=== PATIENT | female | born 1955 | race Caucasian/White ===

== ENCOUNTER → 2023-07-19 10:19 | Outpatient (CLI) | payer MEDICARE, OTHER, SELFPAY ==
[2023-07-19 12:02] LABS: Add Manual Diff / Slide Review NO; Appearance Urine UA CLEAR; Basophils Absolute Auto 0 /uL (0-100); Basophils Percent Auto 0.6 % (0-2); Bilirubin Urine UA NEGATIVE (NEGATIVE); Color Urine UA YELLOW; Eosinophils Absolute Auto 100 /uL (0-450); Eosinophils Percent Auto 1.3 % (2-4); Glucose Urine UA NEGATIVE (Negative); Hematocrit 38.3 % (36-46); Hemoglobin 13.3 g/dL (12.0-16.0); Ketones Urine UA NEGATIVE (NEGATIVE); Leukocyte Esterase Urine UA NEGATIVE (NEGATIVE); Lymphocytes Absolute Auto 2200 /uL (1100-4500); Lymphocytes Percent Auto 44.4 % (25-40); Mean Corpuscular HGB Conc 34.6 % (30-36); Mean Corpuscular Hemoglobin 31.9 PG (26-34); Mean Corpuscular Volume 92.1 fL (80-100); Monocytes Absolute Auto 300 /uL (0-900); Monocytes Percent Auto 6.2 % (3-14); Neutrophils Absolute Auto 2400 /uL (1500-7000); Neutrophils Percent Auto 47.5 % (50-75); Nitrite Urine UA NEGATIVE (Negative); Occult Blood Urine UA NEGATIVE (Negative); Platelet Count 186 X10^3/uL (150-400); Protein Urine UA NEGATIVE (Negative); Red Blood Cell Count 4.16 X10^6/uL (4.0-5.2); Red Cell Distribution Width 13.8 % (11.6-14.8); Specific Gravity Urine UA <=1.005 (1.000-1.035); Urobilinogen Urine UA 0.2 E.U./dL (0.2); White Blood Cell Count 5.1 X10^3/uL (4.5-11.0)
[2023-07-19 12:06] LABS: pH Urine UA 6.5 (4.5-8.0)
[2023-07-19 12:13] LABS: Hemoglobin A1C% w Est Avg Glu 4.8 % (4.0-6.0)
[2023-07-19 12:14] LABS: Bacteria Urine None Seen; Culture Indicated Urine Cult Not Indicated; RBC Urine None Seen (0-5/HPF); Squamous Epithelial Cell Urine None Seen (0-5/HPF); Urine Comments Microscopic Normal; WBC Urine None Seen (0-5/HPF)
[2023-07-19 12:17] LABS: Blood Urea Nitrogen 15 mg/dL (7-17); Calcium 9.2 mg/dL (8.4-10.2); Carbon Dioxide 28 mmol/L (22-32); Chloride 100 mmol/L (98-107); Estimated Glomerular Filt Rate > 60 mL/min (>60); Glucose 88 mg/dL (80-110); HEMOLYSIS < 15 (0-50); Potassium 3.9 mmol/L (3.4-5.1); Sodium 135 mmol/L (137-145)
== END ==
PROVIDERS: PCP Family Medicine; Referring Provider Orthopaedic Surgery; Visit Provider Orthopaedic Surgery
DX: Z01.818 Encounter for other preprocedural examination (principal); R73.9 Hyperglycemia, unspecified; Z01.812 Encounter for preprocedural laboratory examination; N39.0 Urinary tract infection, site not specified
CPT/HCPCS: 36415; 80048; 81001; 83036; 85025; 93005; 93010

== ENCOUNTER 2023-09-19 08:16 | Day surgery (SDC) | payer MEDICARE, OTHER, SELFPAY ==
[2023-09-11 08:21] VITALS: BMI 29.7
[2023-09-19] VITALS (13 sets, daily range): BP systolic 89–141; BP diastolic 45–71; PULSE 55–73; RESP 10–26; TEMP 36–36.6; O2SAT 93–100; BMI 29.5
--- NOTE | 2023-09-19 06:00 | DI.RAD.S_ITS ---
PROCEDURE: XR HIP W PEL IF DONE LT 2V INDICATIONS: left SABRINA TECHNIQUE: 2 view(s) of the hip acquired. COMPARISON: None. FINDINGS: Bones: Patient is status post left hip arthroplasty, with hardware components in expected positions. The hip joint appears congruent. The visualized bony structures appear intact. Soft tissues: Overlying postoperative changes are noted. No suspicious soft tissue densities. IMPRESSION: Expected intraoperative postsurgical change for left hip arthroplasty. Dictated by: Josefa Vazuqez MD, PhD on 09/19/2023 at 14:05 Approved by: Josefa Vazquez MD, PhD on 09/19/2023 at 14:05
[2023-09-19] MEDS: ACETAMINOPHEN 325 MG TABLET 975 MG PO (09:14)
[2023-09-19] MEDS: LACTATED RINGERS 1,000 ML 42 ML IV ×2 (09:15→12:21)
[2023-09-19] MEDS: VANCOMYCIN 1,000 MG/200 ML PIGGYBACK 200 MG IV (09:24)
--- NOTE | 2023-09-19 10:07 | PM.PREOP ---
Pre-operative Note Interval Note History & Physical reviewed/Exam performed by Physician: Yes Changes to H&P: No
--- NOTE | 2023-09-19 10:08 | PM.OP.1 ---
Operative Date/Time/Diagnoses Date of procedure: 09/19/23 Time of procedure: 10:30 Pre-op diagnosis: Severe left hip OA Post-op diagnosis: same Procedure & Clinicians Procedure: Left total hip arthroplasty anterior approach Same procedure as scheduled: Yes Indications: The patient has had progressively worsening left hip pain with radiographic changes consistent with arthritis. Non-operative management has failed and the patient has requested total hip replacement. The risks, benefits and alternatives to surgery were discussed with the patient prior to proceeding. Risks discussed included, but were not limited to, failure to relieve pain, leg length discrepancy, dislocation, stiffness, infection, nerve damage, deep venous thrombosis, pulmonary embolism, stroke, coma, heart attack, permanent paralysis and , as well as the potential need for eventual revision of the prosthetic. Surgeon: Dawna Thompson [employer] Consultant: Sonido Sprague Anesthesia Type: General and Spinal Operative Notes Findings: Severe left hip OA, adequate bone, adequate stability Closure Type: primary Specimen(s): none sent Prosthetic devices, grafts, tissues, transplants, or devices: [employer] R3 50 cup, neutral poly liner,one 6.5 mm screw, 32+ 0 Oxinium head, size 0 standard polar stem with collar Estimated Blood Loss (mL): 250 Blood products transfused: none Procedure in detail: The patient was brought to the operating room. Patient was carefully positioned in the supine position. Time-out was performed and antibiotics were given. Anesthesia was induced. She was positioned in the on the table in order to allow hyperextension of the hip. The left lower extremity was prepped and draped in a standard sterile fashion. An anterior left hip incision was made 1 fingerbreadth lateral to the anterior superior iliac spine and extended distally towards the greater trochanter. Dissection was carried out through skin and subcutaneous tissues. Superficial hemostasis was achieved. The fascia over the tensor fascia jorge was defined and incised with a knife. Two Allis clamps were used to grasp the fascia. Tensor fascia jorge was retracted laterally. A gelpi retractor was placed. Dissection was carried out down along the neck. The circumflex vessels were carefully identified and cauterized with the Aqua Mantis. A PA was used throughout the procedure and was essential for intraoperative retraction and safe implantation of the components. There was good visualization of the femoral neck. A Cobra was placed superior to the neck and the gluteus fibers were carefully stripped from that superior aspect of the capsule. A 2nd retractor was placed along the inferior aspect of the neck. The rectus insertion along the capsule was partially released. A 3rd retractor that was then gently placed over the rim of the acetabulum under the rectus. Capsule was carefully incised and released from the intertrochanteric line circumferentially superior to the mid sagittal line and inferiorly to the mid sagittal line until the lesser trochanter was palpable. A tag stitch was placed both in the superior and inferior limb of the capsular insertion. Along the acetabulum capsule was also released up to the mid sagittal 12:00 position. A portion of the labrum was resected. A saw was used to perform an osteotomy at the level of the intertrochanteric line and the junction of the superior femoral neck leaving approximately 1 finger breath of residual inferior neck above the lesser trochanter. A 2nd cut was made along the femoral neck at the base of the head and a napkin ring of neck was removed. Corkscrew was placed in the femoral head and the head was removed without difficulty. Retractors were then repositioned around the acetabulum. Residual labrum was resected and additional osteophytes were removed. A reamer that was 4 mm below the templated size was placed by hand in the acetabulum and it was reamed to centralize the acetabulum. It was then reamed up to 2 under the templated size and fluoroscopy was brought in to confirm the position of the reaming and depth of reaming. I reamed 1 under the anticipated size and touched the rim with line to line reaming. A trial cup was placed and noted that it was appropriately sized and fluoroscopy confirmed position and depth. The component was open and inserted without difficulty fluoroscopic imaging was used to confirm that the cup had been adequately seated and was well positioned. Neutral poly liner was placed. The cup was tested and noted to be stable. Attention was then directed to the femur. The femur was gently hyperextended additional capsular release was performed as needed in order to allow adequate visualization of the proximal femur with elevation of the femur. Patient was placed in a hyperextended slightly adducted position with maximum external rotation. Box osteotome was used to check for any residual neck as well as sclerotic bone along the trochanter. [place] pepper was placed in the femur. Additional broaching was performed. Canal finder was used to determine the alignment of the canal and position. Size 1 broach was placed. The canal was then appropriately broached up to the templated size as long as there was adequate stability of the broach and serial advancement of the broach without excessive impingement. Specific attention was directed at avoiding varus attempting to direct the distal aspect of the broach more anteriorly and avoiding excessive anteversion. Trial reduction showed acceptable range of motion, good stability, no posterior impingement, sikhism of leg length and appropriate lateral shuck. I also hyperflexed the hip and checked that there was no impingement anteriorly and there was good stability with flexion, adduction and internal rotation. Marcaine and Exparel were injected. The stem was placed without difficulty. Repeat trial reduction and x-ray showed acceptable overall position, length, and no evidence of the femoral fracture. Final head was placed. Wound was meticulously irrigated with normal saline. The hip was reduced and additional Exparel and Marcaine were injected. The capsule was closed with interrupted nonabsorbable sutures. The fascia of the tensor was closed with interrupted and running Vicryl. No drain was placed. Any tensor fascia jorge muscle that appeared to be contused or injured which was a minimal amount was carefully resected. Capsule around the tensor was injected with Exparel and Marcaine. The skin was closed with barbed stitches for the subcutaneous tissue and skin. We also used surgical glue. The wound was dressed sterilely. Brief Betadine soak was also used and was meticulously irrigated with normal saline. Patient was transferred to recovery room in satisfactory condition. Complications: none Post-operative Condition: stable Disposition: Acute Care Plan for aftercare: The patient will be maintained on a standard total hip replacement protocol with weight bearing as tolerated and anterior hip precautions. The patient will receive Aspirin and sequential compression devices for DVT prophylaxis. The patient will be discharged home when safe for the home environment.
[2023-09-19] MEDS: TRANEXAMIC ACID 1,000 MG in SODIUM CHLORIDE 0.9% 100 ML 200 MG IV (10:45)
[2023-09-19] MEDS: CEFAZOLIN 2 GM/100 ML PREMIX 100 ML IV ×2 (10:45→18:17)
--- NOTE | 2023-09-19 11:06 | SUR.OPER ---
Patient supine on padded [place] table, one arm on padded arm board at <90, other arm padded and secured with tape across patient's chest, both legs secured in padded traction boots and positioned per surgeon, padded post at patient's groin, pressure points checked and padded.
[2023-09-19] MEDS: BUPIVACAINE 0.25% (PF) 60 ML, EPINEPHrine 0.3 MG INJ (11:19)
[2023-09-19] MEDS: SODIUM CHLORIDE IRRIG SOLUTION 250 ML, POVIDONE-IODINE SPONGE STICKS 1 APPLIC IRR (11:20)
[2023-09-19] MEDS: BUPIVACAINE LIPOSOME 266 MG/20 ML VIAL INJ (11:20)
--- NOTE | 2023-09-19 14:44 | DI.RAD.S_ITS ---
PROCEDURE: XR HIP W PEL IF DONE LT 2V INDICATIONS: SABRINA TECHNIQUE: AP pelvis and lateral view of the left hip acquired. COMPARISON: [facility], [facility], XR HIP W PEL IF DONE LT 2V, 09/19/2023, 12:40. FINDINGS: Bones: Patient is status post left hip arthroplasty, with hardware components in expected positions. The hip joint appears congruent. The visualized bony structures appear intact. Soft tissues: Overlying postoperative changes are noted. No suspicious soft tissue densities. IMPRESSION: Expected postsurgical change for left hip arthroplasty. Dictated by: Josefa Vazquez MD, PhD on 09/19/2023 at 14:06 Approved by: Josefa Vazquez MD, PhD on 09/19/2023 at 14:06
[2023-09-19] MEDS: OXYCODONE IR 5 MG TABLET PO ×2 (14:50→20:20)
[2023-09-19] MEDS: ACETAMINOPHEN 325 MG TABLET 650 MG PO ×2 (14:50→20:24)
[2023-09-19] MEDS: IBUPROFEN 400 MG TABLET PO ×2 (14:51→18:17)
[2023-09-19] MEDS: TRAMADOL 50 MG TABLET PO (15:23)
[2023-09-19] MEDS: VENLAFAXINE 37.5 MG TABLET 75 MG PO ×2 (15:24→20:21)
[2023-09-19] MEDS: LACTATED RINGERS 1,000 ML 100 ML IV (15:24)
[2023-09-19] MEDS: ASPIRIN EC 81 MG TABLET PO (20:20)
[2023-09-19] MEDS: AMITRIPTYLINE 25 MG TABLET 50 MG PO (20:20)
[2023-09-19] MEDS: MELATONIN 3 MG TABLET PO (20:20)
[2023-09-19] MEDS: DOCUSATE 100 MG CAPSULE PO (20:20)
[2023-09-19] MEDS: carBAMazepine XR 100 MG TAB 300 MG PO (20:21)
[2023-09-20 01:06] VITALS: BP 138/56; PULSE 69; RESP 18; TEMP 36.1; O2SAT 99
[2023-09-20] MEDS: CEFAZOLIN 2 GM/100 ML PREMIX 100 ML IV (02:07)
[2023-09-20] MEDS: LACTATED RINGERS 1,000 ML 100 ML IV (02:07)
[2023-09-20] MEDS: IBUPROFEN 400 MG TABLET PO ×3 (02:07→08:56)
[2023-09-20] MEDS: ACETAMINOPHEN 325 MG TABLET 650 MG PO ×2 (02:07→09:04)
[2023-09-20] MEDS: TRAMADOL 50 MG TABLET PO (05:18)
[2023-09-20] MEDS: LEVOTHYROXINE 50 MCG TABLET PO (05:18)
--- NOTE | 2023-09-20 05:20 | PC.NURSE ---
Patient requesting protonix to be given with 0900 morning meds, as per her routine at home.
[2023-09-20 06:32] LABS: Hematocrit 29.9 % (36-46); Hemoglobin 10.4 g/dL (12.0-16.0)
[2023-09-20 06:50] VITALS: BP 120/48; PULSE 58; RESP 17; TEMP 36.1; O2SAT 99
--- NOTE | 2023-09-20 07:50 | PM.DS.1 ---
History of Present Illness History of Present Illness Date Patient Seen: 09/20/23 Time Patient Seen: 07:50 Chief complaint: Left SABRINA *OPB* 09/19 Narrative: Operative Date/Time/Diagnoses Date of procedure: 09/19/23 Time of procedure: 10:30 Pre-op diagnosis: Severe left hip OA Post-op diagnosis: same Procedure & Clinicians Procedure: Left total hip arthroplasty anterior approach Same procedure as scheduled: Yes Indications: The patient has had progressively worsening left hip pain with radiographic changes consistent with arthritis. Non-operative management has failed and the patient has requested total hip replacement. The risks, benefits and alternatives to surgery were discussed with the patient prior to proceeding. Risks discussed included, but were not limited to, failure to relieve pain, leg length discrepancy, dislocation, stiffness, infection, nerve damage, deep venous thrombosis, pulmonary embolism, stroke, coma, heart attack, permanent paralysis and , as well as the potential need for eventual revision of the prosthetic. Surgeon: Dawna Thompson [employer] Hand: Sonido Sprague Anesthesia Type: General and Spinal Operative Notes Findings: Severe left hip OA, adequate bone, adequate stability Closure Type: primary Specimen(s): none sent Prosthetic devices, grafts, tissues, transplants, or devices: [employer] R3 50 cup, neutral poly liner,one 6.5 mm screw, 32+ 0 Oxinium head, size 0 standard polar stem with collar Estimated Blood Loss (mL): 250 Blood products transfused: none Discharge Providers Provider Discharge Date: 09/20/23 Primary care physician: Silvia Novoa DO Consults: 08/31/23 14:43 Consult to Anesthesiology Routine Comment: Consulting Provider: Anesthesiologist Reason for consultation: Regional block for post operative pain control 09/19/23 06:00 Consult to Anesthesiology Routine Comment: Consulting Provider: Anesthesiologist Reason for consultation: Regional block for post operative pain control 09/19/23 13:34 Consult to Discharge Planning Routine Comment: Consult to Occupational Therapy Evaluate & Treat Comment: Physician Instructions: Evaluate and treat Consult to Physical Therapy Evaluate & Treat Comment: Physician Instructions: post op SABRINA protocol Discharge provider: Naomi Whitlock PA-C Summary Hospital Course Discharge Diagnosis: Left hip osteoarthritis, s/p left total hip arthroplasty Hospital Course: Ms Selena Porter's hospital course was unremarkable. On the morning of POD# 1 she was feeling well and wanted to go home. She was eating and voiding without difficulty and her pain was well-controlled with oral medication. She had not yet been evaluated by PT but had been OOB multiple times without issue. Exam Vital Signs (past 8 hours): - 09/20/23 01:06 09/20/23 06:50 Temperature 96.9 F L 97 F L Pulse Rate 69 58 L Respiratory Rate 18 17 Blood Pressure 138/56 L 120/48 L Pulse Oximetry 99 99 Oxygen Flow Rate 0 0 Oxygen Delivery Method Room Air Oxygen Flow Rate 0 Narrative Exam Narrative: 5/5 strength in hip flexors, quadriceps, hamstrings, DF, PF, EHL on left. Sensation to light touch intact throughout LLE. Calf soft, compressible, nontender. Aquacel dressing CDI. Objective Labs 09/20/23 06:20 Labs: Laboratory Results - last 24 hr 09/20/23 06:20 Hgb 10.4 L Hct 29.9 L PFSH Medical History (Updated 09/11/23 @ 09:18 by Paradise Gutierrez RN) Lyme disease Depression Easy bruisability GERD (gastroesophageal reflux disease) Neuropathy RSD (reflex sympathetic dystrophy) Pre-diabetes Hypothyroidism Fibromyalgia Arthritis Anemia TIA (transient ischemic attack) (2019) RBBB (right bundle branch block) Mixed hyperlipidemia HTN (hypertension) Surgical History (Updated 09/11/23 @ 09:18 by Paradise Gutierrez RN) Hx of hand surgery History of surgery (1964) History of (1982) Social History household members: spouse Smoking Status: Never smoker alcohol intake: never Discharge Assessment & Plan Assessment and Plan Assessment: Left hip osteoarthritis, s/p left total hip arthroplasty Plan of Treatment: Discharge home after PT. Pt has discharge meds already at home. ASA BID x 6 weeks for VTE prophylaxis, outpt PT, f/u in office in 2 weeks as scheduled. Discharge Plan Discharge Plan Patient Disposition: Home Provider Discharge Comment: Increase aspirin to TWICE a day! Discharge orders & Medications Discharge Orders: Discharge (Order); Ordered 09/20/23 Ordered By: Naomi Whitlock Prescriptions: Continued venlafaxine 75 mg Tablet 75 mg PO TID metoprolol succinate 50 mg Tablet Extended Release 24 Hr 50 mg PO DAILY carbamazepine 100 mg Tablet Extended Release 12 Hr 300 mg PO BID melatonin 3 mg Tablet 3 mg PO BEDTIME aspirin [Aspir-81] 81 mg Tablet,Delayed Release (Dr/Ec) 81 mg PO DAILY tramadol 50 mg Tablet 50 mg PO QID amitriptyline 50 mg Tablet 50 mg PO BEDTIME levothyroxine 50 mcg Tablet 50 mcg PO DAILY ferrous sulfate 325 mg (65 mg iron) Tablet 325 mg PO DAILY docusate sodium [Colace] 100 mg Capsule 100 mg PO DAILY omeprazole 20 mg Capsule,Delayed Release(Dr/Ec) 20 mg PO DAILY lisinopril 5 mg Tablet 5 mg PO DAILY hydrochlorothiazide 25 mg Tablet 25 mg PO DAILY rosuvastatin 10 mg Tablet 10 mg PO DAILY Follow up/Referrals: Silvia Novoa DO [Primary Care Provider] - Dawna Thompson MD [Physician] - As previously scheduled (Follow up with Chetan Neville PA-C, on 10/03/2023 @ 3:00 pm at [facility] [place].) Diet/Activity/Treatments Diet: Diet as Tolerated Activity: Weightbearing as tolerated to left leg. Anterior hip precautions. Cold/Heat Therapy: Ice to hip as needed for pain. Skin/Wound/Dressing Care Report to your healthcare provider any signs of infection, such as:: chills, fever, night sweats, unusual drainage and unusual redness Dressing: May shower. Leave dressing in place until follow up in office. No bathing or otherwise soaking incision. Call the office if dressing becomes saturated. Visit Report/Discharge Packet Instructions: DI for Hip Replacement, DI for Prescription Opioid Use Stand Alone Forms: Patient Portal/API, Surgery Discharge Discharge Data Primary Care Provider: Silvia Novoa Attending Provider: Dawna Thompson
[2023-09-20] MEDS: DOCUSATE 100 MG CAPSULE PO (08:55)
[2023-09-20] MEDS: METOPROLOL ER 50 MG TABLET PO (08:55)
[2023-09-20] MEDS: FERROUS SULFATE 325 MG TABLET PO (08:55)
[2023-09-20] MEDS: carBAMazepine XR 100 MG TAB 300 MG PO (08:55)
[2023-09-20] MEDS: ATORVASTATIN 20 MG TABLET PO (08:56)
[2023-09-20] MEDS: VENLAFAXINE 37.5 MG TABLET 75 MG PO (08:56)
[2023-09-20] MEDS: hydroCHLOROthiazide 25 MG TABLET PO (08:57)
[2023-09-20] MEDS: lisinopriL 5 MG TABLET PO (08:57)
[2023-09-20] MEDS: ASPIRIN EC 81 MG TABLET PO (08:57)
[2023-09-20] MEDS: OXYCODONE IR 5 MG TABLET PO (08:57)
[2023-09-20] MEDS: PANTOPRAZOLE DR 20 MG TABLET PO (09:04)
--- NOTE | 2023-09-20 09:15 | PT.IIE ---
Current Diagnoses Unilateral primary osteoarthritis, left hip (09/19/23) Surgery Performed Operation Date: 09/19/23 10:45 Actual Procedures p Total Hip Arthroplasty/Anterior Approach(Left) - Dawna Thompson MD Surgical History (Last Updated 09/11/23 @ 09:18 by Paradise Gutierrez, RN) History of (1982) History of surgery (1964) Hx of hand surgery Medical History (Last Updated 09/11/23 @ 09:18 by Paradise Gutierrez RN) Anemia Arthritis Depression Easy bruisability Fibromyalgia GERD (gastroesophageal reflux disease) HTN (hypertension) Hypothyroidism Lyme disease Mixed hyperlipidemia Neuropathy Pre-diabetes RBBB (right bundle branch block) RSD (reflex sympathetic dystrophy) TIA (transient ischemic attack) (2019) Physical Therapy Inpatient Evaluation/Re-Eval M1 PT/OT-IP Prior Functional Status Start: 09/20/23 12:03 Freq: NEEDED Status: Active Protocol: Document 09/20/23 09:15 AB (Rec: 09/20/23 12:22 AB [id number]) Medical Review Prior Functional Status Medical History Reviewed Yes Communication able to make needs known Mobility and Gait pt stated that she was modified independent with all mobilities and ambulation without AD but started using a quad cane since June and then switched on to a standard walker ~ 6 weeks ago due to hip pain Activities of Daily Living and IADL's per OT notePt had pain with ADL needs but able to complete . Social History Household Members spouse Living Arrangements House Number of Floors (Floors) Two Floors Number of Stairs To Enter/Railing? pt will stay on first level of the house has a ramp to enter Home Environment Standard Height Toilet,Walk in Shower,Ramp,Bidet Home Equipment Four Wheel Walker,Quad Cane, Raised Toilet Seat w/Armrests, Raised Toilet Seat Without Armrests,Tub Transfer Bench, Hand Held Shower,Grab Bars Near Toilet Additional Social History Comment pt has a standard walker M2 PT-IP Current Condition Start: 09/20/23 12:03 Freq: NEEDED Status: Active Protocol: Document 09/20/23 09:15 AB (Rec: 09/20/23 12:22 AB [email or web address]) Physical Therapy Current Condition Current Condition Evaluation Date 09/20/23 Treatment Diagnosis s/p L SABRINA anterior approach; difficulty in walking Onset Date 09/19/23 M3 PT-IP Subjective Start: 09/20/23 12:03 Freq: NEEDED Status: Active Protocol: Document 09/20/23 09:15 AB (Rec: 09/20/23 12:22 AB [email or web address]) Subjective Physical Therapy Visit Type Type Initial Evaluation Visit Start Time 09:15 Visit Stop Time 10:19 Total Visit Minutes 64 Number of JUVENILE PROBATION OFFICER Visits 0 Physical Therapy Visit Comments Patient Comments agreeable to do PT Therapy Pain Assessment Pain When Pain Assessed At Rest Pain Present Pain Present Pain Reported Location Left Hip Intensity 4 Scale Used Numeric (0 - 10) Pain Management Techniques Apply Cold,Distraction, Modification of Treatment,Re- positioning,Timing of Activity with Medications M4 PT-IP Mobility and Gait Start: 09/20/23 12:03 Freq: NEEDED Status: Active Protocol: Document 09/20/23 09:15 AB (Rec: 09/20/23 12:22 AB [email or web address]) PT-Bed Mobility Assessment Supine to Sit Supine to Sit Minimal Assistance Sit to Supine Sit to Supine Moderate Assistance PT-Transfer Assessment Sit to and From Stand Sit to and from Stand Contact Guard Assistance,1 Person Assistance,Use of Upper Extremities Equipment Transfer Assistive Device Gait Belt,Front Wheeled Walker Orthotic/Prosthetic Devices or Brace: No Transfers Transfer Destination Chair Transfer Technique ambulated Transfer Ability Level of Assist Standby Assistance,Contact Guard Assistance,1 Person Assistance,Use of Upper Extremities Comments Mobility Comments pt supine in bed and spouse in room. educated pt and spouse regarding anterior hip precautions LLE. pt requires cues to recall. BP is stable during PT session. pt completed supine to sit min A and for LLE movement to EOB . able to sit on EOB SBA. completed sit to stand CGA and ambulated to the chair using FWW initially requiring min A but able to ambulate CGA after ~ 10 ft of walking. pt sat on the chair. Caregiver training conducte.d educated spouse on how to use safety belt and how to assist pt. spouse was able to put safety belt on pt and assisted pt with sit to stand CGA. pt ambulated to the EOB ~ 15 ft CGA with spouse assisting. educated on bed mobility. pt completed sit to supine mod A for elevated LLE up to bed and spouse was able to assist. pt completed supine to sit min A to EOB. agreed to walk farther. completed sit to stand CGA and ambulated in the hallway ~ 75 ft using FWW SBA to CGA. pt sat on the chair. positioned on the chair. call light and table placed within reach. pt and spouse without further concerns. Gait Assessment Gait Gait Assistance Required: Standby Assistance,Contact Guard Assist,Minimum Assistance Distance (Feet) 75 Able to Maintain Weight Bearing Status Yes During Gait Assistive Devices Assistive Device Gait Belt,Front Wheeled Walker Orthotic/Prosthetic Devices or Brace: No Gait Deviations General Gait Pattern Antalgic,Decreased Stride Length,Decreased Feet Clearance,Step-to Gait Factors Limiting Gait Function Factors Limiting Gait Function Decreased Activity Tolerance, Decreased Sensation,Decreased Strength,Limited Range of Motion,Pain,Poor Balance,Poor Safety Awareness PT-Balance Assessment Sitting Balance and Reactions Dynamic Sitting Balance Ability Good Standing Balance and Reactions Static Standing Balance Ability Fair Dynamic Standing Balance Ability Fair Device Used FWW M5 PT-IP Objective Assessments Start: 09/20/23 12:03 Freq: NEEDED Status: Active Protocol: Document 09/20/23 09:15 AB (Rec: 09/20/23 12:22 [email or web address]) Orientation Orientation/Cognition Level of Alertness Alert Orientation Name,Place,Situation Language Function Ability No Deficits Noted Safety Awareness Decreased Safety Awareness Memory Description Short Term Impaired Gross Range of Motion Lower Extremity ROM Assessment Within Functional Limits Strength Lower Extremity Strength Assessment Left Impaired Hip 3-/5 Knee 3+/5 Sensation Assessment Sensation Gross Sensation Right LE Impaired,Left LE Impaired Sensation Description Tingling Comments Sensation Comments bilateral lower leg tingling per pt: chronic Muscle Tone Muscle Tone WNL Yes M6 PT-IP Treatment Start: 09/20/23 12:03 Freq: NEEDED Status: Active Protocol: Document 09/20/23 09:15 AB (Rec: 09/20/23 12:22 [email or web address]) Physical Therapy Treatment Exercises Exercises Heel Slides Education Education Provided Precautions,Weight Bearing Status,Post-Op Packet,Safety M7 PT-IP Assessment and Plan Start: 09/20/23 12:03 Freq: NEEDED Status: Active Protocol: Document 09/20/23 09:15 AB (Rec: 09/20/23 12:22 [email or web address]) PT Summary Assessment and Plan Potential Rehabilitation Potential Fair Status of Condition at Evaluation Evolving Summary Impairments Pain,ROM,Strength,Balance, Coordination,Sensation,Tone, Cognition,Bed Mobility, Transfers,Gait,Activity Tolerance Assessment Summary pt is a 67y/o F s/p L SABRINA anterior approach POD 1. pt requiring SBA to CGA with mobility using FWW and spouse was able to assist pt safely. Recommending use of FWW at this time and pt plans to borrow one from [facility]. pt plans to go home and may go home when medically stable. pt has outpt PT set up. Goals Bed Mobility Goal Independent Transfer Goal Independent,Front Wheeled Walker Gait Goal Independent,Front Wheel Walker Gait Distance 250 Other Goals improve transfers and ambulation using LRAD 300 ft mod I Days to Meet Goals 5 Frequency of Treatment Frequency Of Treatment Twice a Day Treatment Plan Physical Therapy Treatment Plan Bed Mobility Training,Transfer Training,Gait Training, Therapeutic Exercise,Balance Retraining,Post Op Education, Discharge Planning,Hot or Cold Pack,Neuromuscular Re-ed, Coordination Retraining,Manual Therapy Precautions Anterior Hip Precautions No Hip Extension,No Hip External Rotation Weight Bearing Status Weight Bearing Status Weight Bear as Tolerated Allowed Weight Bearing Amount (enter % LLE WBAT or #) (%) Recommendations To Nursing Amount of Assist Needed 1 Person Assist Discharge Recommendations PT Discharge Recommendations Home with Assistance, Outpatient PT Equipment Needed for Home Before FWW Discharge Transportation Needs at Discharge Private Vehicle
[2023-09-20 09:37] VITALS: BP 111/43; PULSE 63; RESP 18; TEMP 36.3; O2SAT 98
--- NOTE | 2023-09-20 10:22 | CM.DANOTE ---
Reviewed EMR for pt's medical status and anticipated d/c needs. Met with pt at bedside to introduce self and role. She was found to be alert, conversive, expressing feeling ready to d/c home later this morning. Spouse will transport her home. Payor: Medicare Attending: Dr. Thompson Pt is a 67 year-old F placed in same day care bed following a total left hip replacement surgery. Pt has a hx of progressively worsening hip pain with radiographic changes indicative of arthritis. She shares that she has all of the recommended DME at home, spouse will assist w/her care needs. Plan is for her to f/u in 2-weeks with Ortho. No further DCP needs indicated at this time. Discharge Planning/Care Management CM Discharge Assessment Start: 09/20/23 10:20 Freq: Status: Active Protocol: Document 09/20/23 10:20 DPL (Rec: 09/20/23 10:22 DPL [id number]) Discharge Planning Assessment Assigned Executive Chairman Of The Board KRISTI Brown Advance Directives? Yes Advance Directives on File No History Provided By Patient,Medical Record Has Patient been admitted in last 30 No days? Prior Living Arrangements House Household Members spouse Type of transporation used prior to Drives own vehicle admit Independent with ADL's Yes Is patient alert and oriented? Yes Comment N/A Caregiver for Another No DME Already Rented / Owned Bath Bench,Elevated Toilet Seat,FWW / Walker,Cane Patient/Family Preference OP PT Therapy Comment Pt to f/u with Ortho in 2- weeks. Barriers to Discharge No Discharge Plan Home Community Services Physical Therapy Transportation Arrangement Spouse Referrals Initiated None needed Whiteboard Updated in Patient Room with Yes name and ext. # of Executive Chairman Of The Board Review Status In Process Please Provide Date Initial DC 09/20/23 Assessment Was Performed Pre-Anesthesia Assessment Start: 09/11/23 08:21 Freq: Status: Complete Protocol: Document 09/11/23 08:21 CAB (Rec: 09/11/23 09:31 CAB [id number]) Pre-Anesthesia Assessment Preferred Name Ardith Patient Information Reviewed Via Phone Assessment Assessment Completed With Patient Diagnostic Results BMP/CMP,CBC,EKG Comment Labs/EKG @ 07/19/23 Primary Care Provider Silvia Novoa Seen Specialist in Last 12 Months Yes Specialist Seen Manager Of Financial Reporting,Orthopedist,Other Comment RA Primary Language [place]ian English Teacher Required No Height 160.02 cm Weight 76.204 kg Body Mass Index (BMI) 29.7 Hearing Ability Normal Visual Assist Glasses Dentition Type Teeth, Natural Present,Teeth, Missing Barriers to Learning None Hx Anesthesia Reactions Yes: Spinal-didn't work on the left side of me during the Hx Family Anesthesia Reaction No Hx Malignant Hyperthermia No Hx Blood Transfusions Yes: r/t parotid surgery Anesthesia Review Requested No Er Registrar No alcohol intake former Smoking Status Never smoker Substance Use Type does not use Pain Present Pain Reported Musculoskeletal Symptoms Abnormal Gait,Back Pain, Difficulty Walking,Joint Pain, Radiating Pain into Limb History of Falling (Recent or History of Yes ) Patient is completely paralyzed or No completely immobile Prosthesis or Orthotic Device Front Wheel Walker Mental Status Oriented to own ability Is patient on oxygen? No Does patient have DIGGS/SOB Yes: 'When I'm really exerting myself Hx Sleep Apnea No Currently Taking a Beta Wilmre Yes: Metoprolol Hx Chest Pain No Hx SOB Yes: 'When I'm really exerting myself Hx Syncope or Dizziness No Anti-Coagulant Therapy Yes: ASA 81mg-pt will check w/ PCP if needed to hold Has a Manager Of Financial Reporting Yes: Pre-op visit 04/26/23 Manager Of Financial Reporting name Dr. Burger @ [facility] Cardiac Testing Echo 05/25/23, Carotid US Hx Pacemaker/ICD No Pacemaker Rep Required? No Cardiac Clearance Received Yes Comment Cardiac records scanned Diet Type At Home Vegetarian Dysphagia No Gastrointestinal Symptoms Constipation,Nausea,Reflux Bladder Pattern Incontinent, Stress Urinary Catheter Present No Hx Urinary Self Catheterization No Diabetes No: Pre-diabetes HgbA1C 4.8 Date 07/19/23 Patient No Lactating No Hx Drug Resistant Organism No Presence of External or Internal Medical No Devices Received a COVID vaccine? Yes Received all doses? Yes Marital Status Lives With spouse Current Living Arrangements House Number of Floors (Floors) One Floor Number of Stairs To Enter/Railing? Ramp Support System Spouse Does the Patient Have Assistance After Yes Surgery Patient Discharge Plan Description Return Home Comment Pt advised 1-2 day length of stay per surgeon Feels Safe in Current Environment Yes Been Physically Hurt or Threatened By a No Person in Current Environment Do you have thoughts of harming yourself None or others? Are you currently considering suicide? No Do you have a plan to hurt yourself or No Plan others? Do You Have Any Spiritual Beliefs That No May Affect Your HC Choices? Do You Have Any Cultural Practices That No May Affect Your HC Choices? Comment Restorationism Who Can We Speak to About Patient's Care Family, friends Identifying Code for Release of Patient Declines to issue Information Health Care Proxy/Next of Kin Phan () Health Care Proxy Emergency Contact Name Phan () Emergency Contact Advance Directives? Yes Advance Directives on File No Requested Patient Bring Advanced Yes Directives DOS Power of Guest Associate Yes Power of Guest Associate Name Phan () Power of Guest Associate PAC Instructions Do not shave/clip surgical site,Durable medical equipment ,Medications to take/avoid, Nasal antibiotic,No ETOH/ petroleum product on skin DOS, NPO,Pre-surgical wash,Sensory aids,Sturdy shoes/comfortable clothes,Do not bring valuables and remove jewelry
--- NOTE | 2023-09-20 11:08 | OT.IP.EVAL ---
Current Diagnoses Unilateral primary osteoarthritis, left hip (09/19/23) Surgery Performed Operation Date: 09/19/23 10:45 Actual Procedures p Total Hip Arthroplasty/Anterior Approach(Left) - Dawna Thompson MD Past Medical History (Last Updated 09/11/23 @ 09:18 by Paradise Gutierrez, RN) Anemia Arthritis Depression Easy bruisability Fibromyalgia GERD (gastroesophageal reflux disease) HTN (hypertension) Hypothyroidism Lyme disease Mixed hyperlipidemia Neuropathy Pre-diabetes RBBB (right bundle branch block) RSD (reflex sympathetic dystrophy) TIA (transient ischemic attack) (2019) Surgical History (Last Updated 09/11/23 @ 09:18 by Paradise Gutierrez, RN) History of (1982) History of surgery (1964) Hx of hand surgery Occupational Therapy Inpatient Evaluation/Re-Eval M1 PT/OT-IP Prior Functional Status Start: 09/20/23 11:12 Freq: NEEDED Status: Active Protocol: Document 09/20/23 10:50 [facility] (Rec: 09/20/23 11:25 [facility] [id number]) Medical Review Prior Functional Status Communication Independent Mobility and Gait Pt at times having to use her 4ww due to her pain. Activities of Daily Living and IADL's Pt had pain with ADL and IADL needs but able to complete. Social History Household Members spouse Living Arrangements House Number of Floors (Floors) One Floor Number of Stairs To Enter/Railing? Pt has a ramp to enter her house. Home Environment Standard Height Toilet,Walk in Shower Home Equipment Front Wheel Walker,Four Wheel Walker,Straight Cane,Raised Toilet Seat Without Armrests, Grab Bars Near Toilet Additional Social History Comment Pt has a built in seat. M2 OT-IP Current Condition Start: 09/20/23 11:12 Freq: Status: Active Protocol: Document 09/20/23 10:50 [facility] (Rec: 09/20/23 11:25 [facility] [id number]) Occupational Therapy Current Condition Current Condition Evaluation Date 09/20/23 Treatment Diagnosis S/P L SABRINA anterior approach Diagnosis Onset Date 09/19/23 Post Operative Precautions Anterior Hip Precautions No Hip Extension,No Hip External Rotation M3 OT- IP Subjective and Pain Start: 09/20/23 11:12 Freq: Status: Active Protocol: Document 09/20/23 10:50 [facility] (Rec: 09/20/23 11:25 [facility] [id number]) OT- Subjective Occupational Therapy Visit Type Type Initial Evaluation Visit Start Time 10:50 Visit Stop Time 11:08 Total Visit Minutes 18 Occupational Therapy Visit Comments Patient Comments Pt agreed to go over OT needs, pt's in the room with her. Patient/Caregiver Goals To go home. OT Pain Assessment Pain When Pain Assessed At Rest Pain Present Pain Present Denied Pain M4 OT- IP ADL's Start: 09/20/23 11:12 Freq: Status: Active Protocol: Document 09/20/23 10:50 [facility] (Rec: 09/20/23 11:25 [facility] [id number]) OT XOT-Dhsh-Lszlbtv General Evaluation Self-Feeding Ability Independent OT ADL-Grooming General Evaluation Grooming Ability Independent OT ADL-Oral Care General Eval Oral Care Ability Independent OT ADL-Dressing Comments OT Dressing Comments Educated best to raheem LLE first and take out last. Also to be sure not to externally rotate her LLE. OT ADL-Toileting Comments OT Toileting Comments Pt educated increased ease for hygiene with wipes and use of pads at night if needed. OT ADL-Bathing Comments OT Bathing Comments Pt is able to get her FWW to help get into the shower. At this time it would be best to get a shower chair with arms or use the FWW to help to stand from the built in seat in the shower. M5 OT- IP IADL's Start: 09/20/23 11:12 Freq: Status: Active Protocol: Document 09/20/23 10:50 [facility] (Rec: 09/20/23 11:25 [facility] [id number]) OT-Instrumental Activities of Daily Living Deficits IADL Deficits Identified Deficits Home Safety Awareness Awareness of Need for Assistance at Home Good Awareness Ability to Problem Solve Emergency Able to Problem Solve Situations Meal Preparation Meal Preparation Caregiver Provides Assist Tobacco Educator Tobacco Educator Caregiver Provides Assist M6 OT- IP Functional Cognition Start: 09/20/23 11:12 Freq: Status: Active Protocol: Document 09/20/23 10:50 [facility] (Rec: 09/20/23 11:25 [facility] [id number]) Cognitive Factors Limiting Selfcare Function Cognitive Ability Level of Alertness Alert Patient Orientation Name,Age,Birthday,Month,Date, Year,Day of Week,Place, Situation Attention Span Ability Capable of Focused Attention, Capable of Sustained Attention Ability to Follow Commands Able to Follow Multi-Step Commands Memory Description No Deficits Noted Safety Awareness No Deficits Noted Problem Solving Ability No deficits Noted Executive Function Ability No Deficits Noted Cognitive Comments Cognitive Assessment Comments Pt is intact for all OT needs, good understanding and demonstration of following her hip precautions. OT- Vision and Hearing OT- Hearing Assessment OT- Hearing Assessment WFL OT- Vision Assessment Visual Acuity Glasses All The Time Visual Attentiveness WFL Occular Pursuits WFL M7 OT- IP Mobility and Balance Start: 09/20/23 11:12 Freq: Status: Active Protocol: Document 09/20/23 10:50 [facility] (Rec: 09/20/23 11:25 [facility] [id number]) OT-Transfer Assessment Sit to and From Stand Sit to and from Stand Standby Assistance Comments Mobility Comments Pt needing heavy use of her arms on the recliner to help to stand to the FWW. OT- Balance Assessment Sitting Balance and Reactions Static Sitting Balance Ability Normal Dynamic Sitting Balance Ability Good Standing Balance and Reactions Static Standing Balance Ability Good Dynamic Standing Balance Ability Fair M9 OT- IP Assessment and Plan Start: 09/20/23 11:12 Freq: Status: Active Protocol: Document 09/20/23 10:50 [facility] (Rec: 09/20/23 11:25 [facility] [id number]) OT Summary Assessment and Plan Potential Rehabilitation Potential Excellent Analytic Complexity at Evaluation Low Summary OT Impairments Pain,Strength,Balance, Functional Mobility,Dressing, Bathing,Shower Transfers Progress Towards Goals Progressing Toward Goals Assessment Summary Pt low complexity and main barriers are will need assist for dressing and bathing needs . Pt has a supportive who will assist pt at home. Pt to go home with assist and outpt PT. Goals Dressing Goal Independent Toileting Goal Independent Bathing Goal Independent Toilet Transfer Goal Independent Shower Transfer Goal Independent Days to Meet Goals 7 Frequency of Treatment Frequency Of Treatment Once a Day Treatment Plan OT Treatment Plan ADL Training,Functional Mobility,Patient/Family Education,Discharge Planning Discharge Recommendations OT Discharge Recommendations Home with Assistance, Outpatient PT Home Equipment Needs shower chair with armrest Transportation Needs at Discharge Private Vehicle
--- NOTE | 2023-09-20 12:25 | PC.NURSE ---
Discharge: Pt feels ready to d/c to home. Seen by PA an given d/c instructions, Seen by PT/OT and they have passed her for d/c to home. Tolerates diet w/out problems. Voiding w/out diff. Po pain have been effective. Spouse here when seen by PT. D/c packet given and reviewed. Questions answered. Pt d/c to home via auto. Voiced no concerns at d/c.
== END 2023-09-20 11:50 | disposition home or self-care (01) ==
LOC: OR 08:22 → AC 08:23
PROVIDERS: PCP Family Medicine; Referring Provider Orthopaedic Surgery; Visit Provider Orthopaedic Surgery
PROC: (CPT 27130; principal; 2023-09-19 10:45)
DX: M16.12 Unilateral primary osteoarthritis, left hip (principal); D64.9 Anemia, unspecified; I10 Essential (primary) hypertension; K21.9 Gastro-esophageal reflux disease without esophagitis
CPT/HCPCS: 27130; 36415; 73502; 76000; 85014; 85018; 97162; 97165; 97530; C1776; C9290; J0171; J0690; J1100; J2250; J2405; J2704; J3010

== ENCOUNTER 2023-09-25 11:03 | Emergency (ER) | payer MEDICARE, OTHER, SELFPAY ==
[2023-09-19 13:38] VITALS: BMI 29.5
[2023-09-25] VITALS (7 sets, daily range): BP systolic 135–158; BP diastolic 63–72; PULSE 65–79; RESP 13–18; TEMP 36.9; O2SAT 97–98; BMI 29.7
--- NOTE | 2023-09-25 11:10 | ED.SOB ---
HPI - SOB/Dyspnea <Froylan Amin PA-C - Last Filed: 09/25/23 12:43> General Chief Complaint: Chest Pain Stated Complaint: poss pulminary clot post surgery Time Seen by Provider: 09/25/23 11:10 History of Present Illness HPI Narrative: This is a 67-year-old female presents emergency department due to left-sided chest pain onset yesterday. She states that it feels like a dull ache to the lower left side of her chest. She denies any shortness of breath, nausea, vomiting, dizziness, abdominal pain, or any other concerning signs or symptoms. She is concerned she has a blood clot in her lung since she had surgery 6 days ago for left hip total hip replacement. She was discharged with aspirin 81 mg b.i.d. which she says she is been taking his prescribed. Related Data Home Medications Medication Instructions Recorded Confirmed amitriptyline 50 mg tablet 50 mg PO BEDTIME 09/11/23 09/19/23 aspirin 81 mg tablet,delayed 81 mg PO DAILY 09/11/23 09/19/23 release carbamazepine 100 mg 300 mg PO BID RSD 09/11/23 09/19/23 tablet,extended release,12 hr docusate sodium 100 mg capsule 100 mg PO DAILY 09/11/23 09/19/23 (Colace) ferrous sulfate 325 mg (65 mg 325 mg PO DAILY 09/11/23 09/19/23 iron) tablet hydrochlorothiazide 25 mg tablet 25 mg PO DAILY 09/11/23 09/19/23 levothyroxine 50 mcg tablet 50 mcg PO DAILY 09/11/23 09/19/23 lisinopril 5 mg tablet 5 mg PO DAILY 09/11/23 09/19/23 melatonin 3 mg tablet 3 mg PO BEDTIME 09/11/23 09/19/23 metoprolol succinate 50 mg 50 mg PO DAILY 09/11/23 09/19/23 tablet,extended release 24 hr omeprazole 20 mg capsule,delayed 20 mg PO DAILY 09/11/23 09/19/23 release rosuvastatin 10 mg tablet 10 mg PO DAILY 09/11/23 09/19/23 tramadol 50 mg tablet 50 mg PO QID Fibromyalgia 09/11/23 09/19/23 venlafaxine 75 mg tablet 75 mg PO TID Depression 09/11/23 09/19/23 Allergies Allergy/AdvReac Type Severity Reaction Status Date / Time Penicillins Allergy Mild Rash Verified 09/25/23 11:11 pregabalin [From Lyrica] AdvReac Severe Suicidal Verified 09/25/23 11:11 Ideation Sulfa (Sulfonamide AdvReac Intermediate Nausea Verified 09/25/23 11:11 Antibiotics) Review of Systems <Froylan Amin PA-C - Last Filed: 09/25/23 12:43> Review of Systems Narrative: GENERAL: Denies chills, fatigue, malaise, fever, sweats. HEENT: Denies sinus pain, ear pain, sore throat, difficulty swallowing, dizziness. RESPIRATORY: Denies dyspnea, cough, wheezing, hemoptysis, sputum. CARDIOVASCULAR: Reports left-sided chest pain, denies palpitations, orthopnea, edema, GASTROINTESTINAL: Denies nausea, vomiting, abdominal pain, diarrhea, constipation, melena. : Denies dysuria, frequency, incontinence, hematuria, urinary retention. MUSCULOSKELETAL: denies weakness, joint pain, or bony pain SKIN: Denies rash, skin lesions, or other NEUROLOGIC: Denies weakness, headache, numbness, change in speech, confusion, seizures, incoordination. PSYCHIATRIC: No concerning psychosocial issues. 12 point review of systems is negative except for those stated above Patient History <Froylan Amin PA-C - Last Filed: 09/25/23 12:43> Medical History (Updated 09/25/23 @ 12:43 by Froylan Amin PA-C) Lyme disease Depression Easy bruisability GERD (gastroesophageal reflux disease) Neuropathy RSD (reflex sympathetic dystrophy) Pre-diabetes Hypothyroidism Fibromyalgia Arthritis Anemia TIA (transient ischemic attack) (2019) RBBB (right bundle branch block) Mixed hyperlipidemia HTN (hypertension) Surgical History (Updated 09/11/23 @ 09:18 by Paradise Gutierrez RN) Hx of hand surgery History of surgery (1964) History of (1982) Social History household members: spouse Smoking Status: Never smoker alcohol intake: never Smoking Status: Never smoker Substance Use Type: does not use Exam <Froylan Amin PA-C - Last Filed: 09/25/23 12:43> Narrative Exam Narrative: GENERAL: Well-developed patient, in mild distress. HEAD: Atraumatic. Normocephalic. EYES: Pupils equal round and reactive. Extraocular motions intact. No scleral icterus. No injection or drainage. ENT: Nose without bleeding, purulent drainage. Throat without erythema, tonsillar hypertrophy or exudate. Airway patent. NECK: Trachea midline. Non tender CARDIOVASCULAR: Regular rate and rhythm without murmurs, gallops, or rubs. RESPIRATORY: Clear to auscultation. Breath sounds equal bilaterally. No wheezes, rales, or rhonchi. GASTROINTESTINAL: Abdomen soft, non-tender, nondistended. EXTREMITIES: No edema or joint tenderness. BACK: Nontender without deformity or crepitance. No flank tenderness. NEURO: AOx3. SKIN: No rash or erythema of visible areas Initial Vital Signs Initial Vital Signs: Vital Signs Temperature 98.5 F 09/25/23 11:11 Pulse Rate 79 09/25/23 11:11 Respiratory Rate 18 09/25/23 11:11 Blood Pressure 158/72 H 09/25/23 11:11 Pulse Oximetry 98 09/25/23 11:11 Oxygen Delivery Method Room Air 09/25/23 11:11 <Frank Walker MD - Last Filed: 10/09/23 12:54> Initial Vital Signs Initial Vital Signs: Vital Signs Temperature 98.5 F 09/25/23 11:11 Pulse Rate 79 09/25/23 11:11 Respiratory Rate 18 09/25/23 11:11 Blood Pressure 158/72 H 09/25/23 11:11 Pulse Oximetry 98 09/25/23 11:11 Oxygen Delivery Method Room Air 09/25/23 11:11 Course <Froylan Amin PA-C - Last Filed: 09/25/23 12:43> Orders Ordered: ED Orders 09/25/23 11:17 EKG-12 Lead Stat 09/25/23 11:18 XR chest 2V Stat 09/25/23 11:30 Complete Blood Count AUTO DIFF Stat Comprehensive Metabolic Panel Stat D Dimer Stat Troponin & CK Cardiac Panel Stat 09/25/23 11:53 CT angio chest PE protocol Stat Vital Signs Vital signs: Vital Signs - 8 hr 09/25/23 11:11 09/25/23 11:28 09/25/23 11:30 Temperature 98.5 F Pulse Rate 79 75 Respiratory Rate 18 Blood Pressure 158/72 H 141/67 H Pulse Oximetry 98 98 Oxygen Delivery Method Room Air Room Air 09/25/23 11:30 09/25/23 12:00 09/25/23 12:24 Temperature Pulse Rate 73 68 Respiratory Rate 13 Blood Pressure 135/63 Pulse Oximetry 98 97 Oxygen Delivery Method Room Air 09/25/23 12:24 Temperature Pulse Rate 69 Respiratory Rate 17 Blood Pressure Pulse Oximetry 98 Oxygen Delivery Method <Frank Walker MD - Last Filed: 10/09/23 12:54> Orders Ordered: ED Orders 09/25/23 11:17 EKG-12 Lead Stat 09/25/23 11:18 XR chest 2V Stat 09/25/23 11:30 Complete Blood Count AUTO DIFF Stat Comprehensive Metabolic Panel Stat D Dimer Stat Troponin & CK Cardiac Panel Stat 09/25/23 11:53 CT angio chest PE protocol Stat Vital Signs Vital signs: Vital Signs - 8 hr 09/25/23 11:11 09/25/23 11:28 09/25/23 11:30 Temperature 98.5 F Pulse Rate 79 75 Respiratory Rate 18 Blood Pressure 158/72 H 141/67 H Pulse Oximetry 98 98 Oxygen Delivery Method Room Air Room Air 09/25/23 11:30 09/25/23 12:00 09/25/23 12:24 Temperature Pulse Rate 73 68 Respiratory Rate 13 Blood Pressure 135/63 Pulse Oximetry 98 97 Oxygen Delivery Method Room Air 09/25/23 12:24 Temperature Pulse Rate 69 Respiratory Rate 17 Blood Pressure Pulse Oximetry 98 Oxygen Delivery Method MDM - SOB/Dyspnea <Froylan Amin PA-C - Last Filed: 09/25/23 12:43> Lab Data 09/25/23 11:30 09/25/23 11:30 Labs: Lab Results 09/25/23 Range/Units 11:30 WBC 6.2 (4.5-11.0) X10^3/uL RBC 3.93 L (4.0-5.2) X10^6/uL Hgb 12.2 (12.0-16.0) g/dL Hct 36.0 (36-46) % MCV 91.4 (80-100) fL MCH 31.1 (26-34) PG MCHC 34.1 (30-36) % RDW 13.4 (11.6-14.8) % Plt Count 258 (150-400) X10^3/uL Neut % (Auto) 60.4 (50-75) % Lymph % (Auto) 27.9 (25-40) % [place] % (Auto) 7.8 (3-14) % Eos % (Auto) 2.9 (2-4) % Baso % (Auto) 1.0 (0-2) % Neut # (Auto) 3800 (4777-8250) /uL Lymph # (Auto) 1700 (5381-5308) /uL [place] # (Auto) 500 (0-900) /uL Eos # (Auto) 200 (0-450) /uL Baso # (Auto) 100 (0-100) /uL D-Dimer 2037 H (<500) ng/ml Sodium 134 L (137-145) mmol/L Potassium 3.5 (3.4-5.1) mmol/L Chloride 96 L (98-107) mmol/L Carbon Dioxide 33 H (22-32) mmol/L BUN 15 (7-17) mg/dL Creatinine 0.48 L (0.52-1.04) mg/dL Estimated GFR > 60 (>60) mL/min BUN/Creatinine Ratio 31.3 H (6-22) Glucose 99 (80-110) mg/dL Calcium 9.6 (8.4-10.2) mg/dL Total Bilirubin 0.4 (0.2-1.3) mg/dL AST 27 (14-36) IU/L ALT 27 (<35) IU/L Alkaline Phosphatase 88 (38-126) U/L Total Creatine Kinase 133 (30-135) U/L Troponin I < 0.012 (0.01-0.034) ng/mL Total Protein 7.2 (6.3-8.2) g/dL Albumin 3.9 (3.5-5.0) g/dL Globulin 3.3 (1.7-4.1) g/dL Albumin/Globulin Ratio 1.2 (1.0-2.8) Imaging Data Chest x-ray: Radiologist's Impression: [address] [address] XRay Report Signed Patient: Harley Angulo MR#: [id number] : 1955 Acct:[id number] Age/Sex: 67 / F Date of Service: 09/25/23 Loc: ED Accession Number: [id number] Procedure: XR chest 2V Ordering Provider: Froylan Amin P.A-C PROCEDURE: XR CHEST 2V INDICATIONS: L sided CP TECHNIQUE: 2 views of the chest were acquired. COMPARISON: None. FINDINGS: Surgical changes and devices: None. Lungs and pleura: Lungs are clear. No pleural effusions or pneumothorax. Mediastinum: Mediastinal contours are normal. Heart size is normal. Bones and chest wall: No suspicious bony abnormalities. Soft tissues appear unremarkable. IMPRESSION: No acute cardiopulmonary pathology. Dictated by: Imtiaz Mackay M.D. on 09/25/2023 at 12:13 Approved by: Imtiaz Mackay M.D. on 09/25/2023 at 12:13 CT scan - chest: Radiologist's Impression: [address] [address] [address] Scan Report Signed Patient: Harley Angulo MR#: [id number] : 1955 Acct:[id number] Age/Sex: 67 / F Date of Service: 09/25/23 Loc: ED Accession Number: [id number] Procedure: CT angio chest PE protocol Ordering Provider: Froylan Amin P.A-C PROCEDURE: CT ANGIO CHEST PE PROTOCOL INDICATIONS: Elevated D-dimer, sp surgery r/o PE TECHNIQUE: After the administration of intravenous contrast, 2 mm thick sections acquired from the pulmonary apices to the posterior costophrenic angles. 3-dimensional maximum intensity projection (MIP) coronal and sagittal reformats were then acquired through the thorax. For radiation dose reduction, the following was used: automated exposure control, adjustment of mA and/or kV according to patient size. COMPARISON: None. FINDINGS: Image quality: Diagnostic. Pulmonary arteries: Pulmonary arteries are normal in size, and demonstrate no intraluminal filling defects to suggest central pulmonary embolism. Lungs and pleura: Lungs are clear. No pleural effusions or pneumothorax. Central and peripheral airways are patent. 10 x 7 mm solid nodule in the right middle lobe (series 5, image 159). Mediastinum: Heart size is normal, without pericardial effusion. No mediastinal or hilar adenopathy. Thoracic aorta is normal in caliber and enhancement. Esophagus is normal in caliber, with small hiatal hernia. Bones and chest wall: No suspicious bony lesions. Ribs and thoracic spine appear intact throughout. No axillary or supraclavicular adenopathy. No thyroid nodules which require sonographic follow up, per consensus guidelines. Abdomen: Punctate nonobstructing nephrolithiasis on the right. Hepatic cysts. IMPRESSION: No pulmonary embolus. 10 x 7 mm solid nodule in the right middle lobe. Recommend three-month follow-up chest CT. Small hiatal hernia. Dictated by: Galdino Villasenor M.D. on 09/25/2023 at 12:24 Approved by: Galdino Villasenor M.D. on 09/25/2023 at 12:26 ECG Data Interpretation: EKG is normal sinus rhythm rate 71 bpm and free of any signs of ischemia or ectopy. No ST segmental elevation or depression. No T wave inversions. Known right bundle-branch block MDM Narrative Medical decision making narrative: MDM * differential diagnosis includes but not limited to PE, ACS, musculoskeletal chest pain, rib contusion * Prior records reviewed: Patient was taken to the OR [address] Thompson, orthopedist due to worsening left hip pain. Failed non management and total hip replacement was performed. Patient felt well after postop day 1 and was discharged. History of Lyme disease, depression, GERD, hypothyroidism, fibromyalgia, arthritis, anemia, TIA, right bundle branch block, hypertension. Patient was discharged on 81 mg aspirin daily. Made weight-bearing as tolerated to the left leg with anterior hip precautions. * My lab interpretation: CBC unremarkable. CMP showed mild hyponatremia but patient does not report any concerning symptoms related to this. D-dimer elevated, CT PE ordered. Troponin within normal limits. * My imgaing interpretation: Chest x-ray unremarkable. CTA showed a pulmonary nodule in the right side is a small hiatal hernia but negative for PE. * Clinical Decision Rules/Scores evaluated: None * Independent discussions with: None ED Course: This is a 67-year-old female presents emergency department due to left-sided rib pain post surgery about a week ago with concerns for pulmonary embolism. Chest pain order set ordered which was all unremarkable. D-dimer was elevated and CTA ordered which was negative for PE but did report a pulmonary nodule in the right as well as a small hiatal hernia which I follow up I recommended she follow up with the primary care provider about. Suspect the left-sided rib pain may be due to the recent OR experience, possibly due to manipulation in the OR. Shared Decision Making: Discussed plan with patient who is comfortable with the plan. Social Considerations: None Disposition: Discharged to home <Frank Walker MD - Last Filed: 10/09/23 12:54> Lab Data Labs: Lab Results 09/25/23 Range/Units 11:30 WBC 6.2 (4.5-11.0) X10^3/uL RBC 3.93 L (4.0-5.2) X10^6/uL Hgb 12.2 (12.0-16.0) g/dL Hct 36.0 (36-46) % MCV 91.4 (80-100) fL MCH 31.1 (26-34) PG MCHC 34.1 (30-36) % RDW 13.4 (11.6-14.8) % Plt Count 258 (150-400) X10^3/uL Neut % (Auto) 60.4 (50-75) % Lymph % (Auto) 27.9 (25-40) % [place] % (Auto) 7.8 (3-14) % Eos % (Auto) 2.9 (2-4) % Baso % (Auto) 1.0 (0-2) % Neut # (Auto) 3800 (1691-8403) /uL Lymph # (Auto) 1700 (4816-5973) /uL [place] # (Auto) 500 (0-900) /uL Eos # (Auto) 200 (0-450) /uL Baso # (Auto) 100 (0-100) /uL D-Dimer 2037 H (<500) ng/ml Sodium 134 L (137-145) mmol/L Potassium 3.5 (3.4-5.1) mmol/L Chloride 96 L (98-107) mmol/L Carbon Dioxide 33 H (22-32) mmol/L BUN 15 (7-17) mg/dL Creatinine 0.48 L (0.52-1.04) mg/dL Estimated GFR > 60 (>60) mL/min BUN/Creatinine Ratio 31.3 H (6-22) Glucose 99 (80-110) mg/dL Calcium 9.6 (8.4-10.2) mg/dL Total Bilirubin 0.4 (0.2-1.3) mg/dL AST 27 (14-36) IU/L ALT 27 (<35) IU/L Alkaline Phosphatase 88 (38-126) U/L Total Creatine Kinase 133 (30-135) U/L Troponin I < 0.012 (0.01-0.034) ng/mL Total Protein 7.2 (6.3-8.2) g/dL Albumin 3.9 (3.5-5.0) g/dL Globulin 3.3 (1.7-4.1) g/dL Albumin/Globulin Ratio 1.2 (1.0-2.8) Discharge Plan Departure Patient Disposition: Home Clinical Impression: Pain in rib Instructions: DI for Atypical Chest Pain Activity Restrictions/Additional Instructions: Thank you for coming to the [facility] Emergency Department today. As we discussed the CT scan was negative for any blood clots in your lungs. The cardiac workup we did today was also negative for a ?heart attack?. The CT scan did show a small pulmonary nodule on the right side which I do recommend you follow up with the primary care provider about. Another incidental finding was the hiatal hernia which we discussed. Please continue taking the aspirin as recommended by your surgeon. Your lab work was unremarkable otherwise. I hope you feel better soon. Please follow up with your primary care provider within a week if your symptoms continue. If you do not have a primary care provider please contact the [facility] Resource line at [phone]. They will ask some questions about your medical history and help you get set up with a provider in the community. Prescriptions: No Action venlafaxine 75 mg Tablet 75 mg PO TID metoprolol succinate 50 mg Tablet Extended Release 24 Hr 50 mg PO DAILY carbamazepine 100 mg Tablet Extended Release 12 Hr 300 mg PO BID melatonin 3 mg Tablet 3 mg PO BEDTIME aspirin 81 mg Tablet,Delayed Release (Dr/Ec) 81 mg PO DAILY tramadol 50 mg Tablet 50 mg PO QID amitriptyline 50 mg Tablet 50 mg PO BEDTIME levothyroxine 50 mcg Tablet 50 mcg PO DAILY ferrous sulfate 325 mg (65 mg iron) Tablet 325 mg PO DAILY docusate sodium [Colace] 100 mg Capsule 100 mg PO DAILY omeprazole 20 mg Capsule,Delayed Release(Dr/Ec) 20 mg PO DAILY lisinopril 5 mg Tablet 5 mg PO DAILY hydrochlorothiazide 25 mg Tablet 25 mg PO DAILY rosuvastatin 10 mg Tablet 10 mg PO DAILY Referrals: Silvia Novoa DO [Primary Care Provider] - Stand Alone Forms: Patient Portal/API ED Sign-out <Frank Walker MD - Last Filed: 10/09/23 12:54> Cosign ED Attending Cosignature Attestation: I was immediately available in the department for consultation. This documentation has been reviewed and I agree with assessment and plan. Supervised by Frank Walker MD
--- NOTE | 2023-09-25 11:18 | DI.RAD.S_ITS ---
PROCEDURE: XR CHEST 2V INDICATIONS: L sided CP TECHNIQUE: 2 views of the chest were acquired. COMPARISON: None. FINDINGS: Surgical changes and devices: None. Lungs and pleura: Lungs are clear. No pleural effusions or pneumothorax. Mediastinum: Mediastinal contours are normal. Heart size is normal. Bones and chest wall: No suspicious bony abnormalities. Soft tissues appear unremarkable. IMPRESSION: No acute cardiopulmonary pathology. Dictated by: Imtiaz Mackay M.D. on 09/25/2023 at 12:13 Approved by: Imtiaz Mackay M.D. on 09/25/2023 at 12:13
[2023-09-25 11:39] LABS: Add Manual Diff / Slide Review NO; Basophils Absolute Auto 100 /uL (0-100); Eosinophils Absolute Auto 200 /uL (0-450); Eosinophils Percent Auto 2.9 % (2-4); Hemoglobin 12.2 g/dL (12.0-16.0); Lymphocytes Absolute Auto 1700 /uL (1100-4500); Lymphocytes Percent Auto 27.9 % (25-40); Mean Corpuscular HGB Conc 34.1 % (30-36); Mean Corpuscular Hemoglobin 31.1 PG (26-34); Mean Corpuscular Volume 91.4 fL (80-100); Monocytes Absolute Auto 500 /uL (0-900); Monocytes Percent Auto 7.8 % (3-14); Neutrophils Absolute Auto 3800 /uL (1500-7000); Neutrophils Percent Auto 60.4 % (50-75); Platelet Count 258 X10^3/uL (150-400); Red Blood Cell Count 3.93 X10^6/uL (4.0-5.2); Red Cell Distribution Width 13.4 % (11.6-14.8); White Blood Cell Count 6.2 X10^3/uL (4.5-11.0)
[2023-09-25 11:48] LABS: D Dimer 2037 ng/ml (<500)
[2023-09-25 11:50] LABS: Alanine Aminotransferase 27 IU/L (<35); Albumin 3.9 g/dL (3.5-5.0); Albumin Globulin Ratio 1.2 (1.0-2.8); Alkaline Phosphatase 88 U/L (38-126); Aspartate Aminotransferase 27 IU/L (14-36); BUN Creatinine Ratio 31.3 (6-22); Bilirubin Total 0.4 mg/dL (0.2-1.3); Blood Urea Nitrogen 15 mg/dL (7-17); Calcium 9.6 mg/dL (8.4-10.2); Carbon Dioxide 33 mmol/L (22-32); Chloride 96 mmol/L (98-107); Creatine Kinase 133 U/L (30-135); Estimated Glomerular Filt Rate > 60 mL/min (>60); Globulin 3.3 g/dL (1.7-4.1); Glucose 99 mg/dL (80-110); HEMOLYSIS < 15 (0-50); Potassium 3.5 mmol/L (3.4-5.1); Sodium 134 mmol/L (137-145); Total Protein 7.2 g/dL (6.3-8.2)
--- NOTE | 2023-09-25 11:53 | DI.CT.S_ITS ---
PROCEDURE: CT ANGIO CHEST PE PROTOCOL INDICATIONS: Elevated D-dimer, sp surgery r/o PE TECHNIQUE: After the administration of intravenous contrast, 2 mm thick sections acquired from the pulmonary apices to the posterior costophrenic angles. 3-dimensional maximum intensity projection (MIP) coronal and sagittal reformats were then acquired through the thorax. For radiation dose reduction, the following was used: automated exposure control, adjustment of mA and/or kV according to patient size. COMPARISON: None. FINDINGS: Image quality: Diagnostic. Pulmonary arteries: Pulmonary arteries are normal in size, and demonstrate no intraluminal filling defects to suggest central pulmonary embolism. Lungs and pleura: Lungs are clear. No pleural effusions or pneumothorax. Central and peripheral airways are patent. 10 x 7 mm solid nodule in the right middle lobe (series 5, image 159). Mediastinum: Heart size is normal, without pericardial effusion. No mediastinal or hilar adenopathy. Thoracic aorta is normal in caliber and enhancement. Esophagus is normal in caliber, with small hiatal hernia. Bones and chest wall: No suspicious bony lesions. Ribs and thoracic spine appear intact throughout. No axillary or supraclavicular adenopathy. No thyroid nodules which require sonographic follow up, per consensus guidelines. Abdomen: Punctate nonobstructing nephrolithiasis on the right. Hepatic cysts. IMPRESSION: No pulmonary embolus. 10 x 7 mm solid nodule in the right middle lobe. Recommend three-month follow-up chest CT. Small hiatal hernia. Dictated by: Galdino Villasenor M.D. on 09/25/2023 at 12:24 Approved by: Galdino Villasenor M.D. on 09/25/2023 at 12:26
[2023-09-25 12:02] LABS: Troponin I < 0.012 ng/mL (0.01-0.034)
== END 2023-09-25 13:00 | disposition home or self-care (01) ==
PROVIDERS: Emergency Provider Physician Assistant Medical; PCP Family Medicine
DX: R07.9 Chest pain, unspecified (principal); R07.81 Pleurodynia; I45.10 Unspecified right bundle-branch block
CPT/HCPCS: 36415; 71046; 71275; 80053; 82550; 84484; 85025; 85379; 93005; 93010; 99284

== ENCOUNTER → 2024-05-04 07:39 | Outpatient (CLI) | payer MEDICARE, OTHER, SELFPAY ==
[2023-09-19 13:38] VITALS: BMI 29.5
--- NOTE | 2024-05-04 | DI.MRI.S_ITS ---
PROCEDURE: MR LUMBAR SPINE WO CON INDICATIONS: INTERVERTEBRAL DISC DISORDERS WITH RADICULOPATHY TECHNIQUE: Noncontrast sagittal T1 spin echo and T2 fast echo, sagittal STIR, and T2 fast spin echo through the lumbar spine. In cases with scoliosis, additional coronal T2 fast spin echo may be performed. COMPARISON: None. FINDINGS: Image quality: Excellent. Alignment and Curvature: There is normal bony alignment. Bone Marrow: Marrow is of normal overall signal. No acute vertebral body compression fractures. Spinal Cord: Conus medullaris terminates at the L1 level. Visualized cord demonstrates normal signal and size. Paraspinous Soft Tissues: No paravertebral masses. T12-L1: Normal appearance. L1-L2: Normal appearance. L2-L3: Normal appearance. L3-L4: Mild disc space narrowing and bulge without central or foraminal stenosis L4-L5: Disc space narrowing and circumferential disc bulge with hypertrophic facet joints. Mild central stenosis. Mild left and no right foraminal stenosis L5-S1: Disc height is preserved. Left subarticular disc protrusion effaces the left lateral recess and displaces the descending nerve root. Hypertrophic facet joints present. No central or foraminal stenosis. IMPRESSION: L5-S1 left subarticular disc protrusion displaces the descending nerve root in the left lateral recess. No central or foraminal stenosis Approved by: Gil Angeles M.D. on 05/06/2024 at 19:09
== END ==
PROVIDERS: PCP Family Medicine; Referring Provider Physical Medicine & Rehabilitation; Visit Provider Physical Medicine & Rehabilitation
DX: M51.16 Intervertebral disc disorders with radiculopathy, lumbar region (principal)
CPT/HCPCS: 72148

== ENCOUNTER → 2024-06-04 14:33 | Outpatient (CLI) | payer MEDICARE, OTHER, SELFPAY ==
[2023-09-19 13:38] VITALS: BMI 29.5
--- NOTE | 2024-06-04 14:40 | EKG_ITS ---
[address] [address] Test Date: 2024-06-04 [facility]: [facility]: Gender: Female Patcher: NAINA : 1955 Requested By: Order Number: [id number] Reading MD: Danny Carrizales Measurements Intervals [place] Rate: 74 P: 54 [place]: 144 QRS: -66 QRSD: 156 T: 13 QT: 470 QTc: 521 Interpretive Statements Normal sinus rhythm Left axis deviation Right bundle branch block Electronically Signed On 06-05-2024 8:50:33 PDT by Danny Carrizales
[2024-06-04 17:26] LABS: Add Manual Diff / Slide Review NO; Basophils Absolute Auto 0 /uL (0-100); Basophils Percent Auto 0.6 % (0-2); Eosinophils Absolute Auto 100 /uL (0-450); Eosinophils Percent Auto 1.1 % (2-4); Hematocrit 40.2 % (36-46); Lymphocytes Absolute Auto 2300 /uL (1100-4500); Lymphocytes Percent Auto 32.2 % (25-40); Mean Corpuscular HGB Conc 34.8 % (30-36); Mean Corpuscular Hemoglobin 33.1 PG (26-34); Mean Corpuscular Volume 95.2 fL (80-100); Monocytes Absolute Auto 500 /uL (0-900); Monocytes Percent Auto 6.7 % (3-14); Neutrophils Absolute Auto 4300 /uL (1500-7000); Neutrophils Percent Auto 59.4 % (50-75); Platelet Count 210 X10^3/uL (150-400); Red Blood Cell Count 4.22 X10^6/uL (4.0-5.2); Red Cell Distribution Width 14.1 % (11.6-14.8); White Blood Cell Count 7.2 X10^3/uL (4.5-11.0)
[2024-06-04 17:45] LABS: BUN Creatinine Ratio 26.3 (6-22); Blood Urea Nitrogen 15 mg/dL (7-17); Calcium 9.4 mg/dL (8.4-10.2); Carbon Dioxide 31 mmol/L (22-32); Chloride 96 mmol/L (98-107); Estimated Glomerular Filt Rate > 60 mL/min (>60); Glucose 80 mg/dL (80-110); HEMOLYSIS < 15 (0-50); Potassium 3.4 mmol/L (3.4-5.1); Sodium 133 mmol/L (137-145)
== END ==
LOC: RESP 14:37
PROVIDERS: PCP Family Medicine; Referring Provider Orthopaedic Surgery Orthopaedic Surgery of the Spine; Visit Provider Orthopaedic Surgery Orthopaedic Surgery of the Spine
DX: Z01.818 Encounter for other preprocedural examination (principal); E78.9 Disorder of lipoprotein metabolism, unspecified; Z01.812 Encounter for preprocedural laboratory examination
CPT/HCPCS: 36415; 80048; 85025; 93005

== ENCOUNTER 2024-06-19 12:53 | Day surgery (SDC) | payer MEDICARE, OTHER, SELFPAY ==
[2023-09-19 13:38] VITALS: BMI 29.5
[2024-06-17 10:33] VITALS: BMI 29.2
[2024-06-19] VITALS (7 sets, daily range): BP systolic 130–204; BP diastolic 42–99; PULSE 78–91; RESP 10–19; TEMP 36.2–37.1; O2SAT 92–98; BMI 32.5
[2024-06-19] MEDS: LACTATED RINGERS 1,000 ML 42 ML IV (13:09)
[2024-06-19] MEDS: ACETAMINOPHEN 325 MG TABLET 975 MG PO (13:19)
--- NOTE | 2024-06-19 13:54 | PM.PREOP ---
Pre-operative Note Interval Note History & Physical reviewed/Exam performed by Physician: Yes Changes to H&P: No
[2024-06-19] MEDS: CEFAZOLIN 2 GM/100 ML PREMIX 100 ML IV (14:12)
--- NOTE | 2024-06-19 14:21 | SUR.OPER ---
Prone on spine table, head in foam head support, padded chest and pelvic supports, gel pad at knees, lower legs supported by pillows; nipples, genitalia and toes free of pressure, arms secured on foam padded arm boards at <90 degrees abduction. Tape over blanket at thigh secured to table.
[2024-06-19] MEDS: BUPIVACAINE 0.25% (PF) 30 ML, EPINEPHrine 0.15 MG INJ (14:28)
--- NOTE | 2024-06-19 15:20 | PM.OP.1 ---
Operative Date/Time/Diagnoses Date of procedure: 06/19/24 Time of procedure: 14:00 Pre-op diagnosis: 1. L5-S1 disc herniation 2. Lumbar radiculopathy Post-op diagnosis: same Procedure & Clinicians Procedure: 1. L5-S1 left microdiscectomy. 2. Utilization of microsurgical technique and operating microscope Same procedure as scheduled: Yes Indications: Patient has been having chronic back pain and worsening lumbar radiculopathy. Patient was found to have a L5-S1 disc herniation with left S1 nerve root impingement correlating with the patient's symptoms. Patient failed multiple conservative management with worsening pain weakness and numbness in her lower extremity. Patient has been having difficulty performing activity of daily living. After discussing risks benefits of treatment options, patient elected proceed with surgery. Surgeon: Manjeet Brock [employer] Interpreter: Naomi Whitlock Click Yes if Unassisted: No Anesthesia Type: General Operative Notes Closure Type: primary Estimated Blood Loss (mL): 5 Blood products transfused: none Procedure in detail: Patient was seen in the preoperative area. Risks and benefits of the surgery was discussed with the patient. Informed consent was obtained from the patient and placed in the chart. Surgical site was marked. Patient was taken to the operative room. General anesthesia was administered. Prophylactic antibiotic was given to the patient less than 30 min before the incision was made. Patient was placed into a prone position on the Aime table. Patient's back was then prepped and draped in the sterile fashion. Time-out was performed at this time. Using AP and lateral C-arm imaging the interval between L5-S1 was identified and marked on patient's back. A 1 inch incision 1 in from midline was made on the left side. The fascia was incised in line with skin incision. Globus MARS retractors was placed inside the incision and docked onto the L5 lamina. Using microsurgical technique and operating microscope, a L5 laminotomy was performed using a Kerrison rongeur. Liagamentum flavum was resected at the site of the laminotomy. The disc space at L5-S1 was identified. Microdiscectomy was performed by incising the annulus with #11 blade. Microcurettes and pituitary was used to removed herniated disc fragments of disc from the epidural space. After the microdiskectomy was completed, the area medial lateral superior and inferior to the area of the microdiskectomy was inspected and explored using a micro curette. No other impinging structure was identified. The wound was then irrigated with sterile normal saline. 40 mg Depo-Medrol was placed into the epidural space. The deep fascia was closed with 1-0 Vicryl. The subcutaneous tissue was closed with 2-0 Vicryl. The skin was closed with skin frank. Patient tolerated the procedure well. There were no complications. Patient was transferred recovery room in stable condition. The Operation could not have been safely performed without compromising the technical result or length of the procedure, without the assistance of a skilled surgical supply assistant. The surgical supply assistant was medically necessary for proper positioning, retraction and manipulation of instruments, proper exposure, surgical preparation, and manipulation of tissue. Complications: none Post-operative Condition: stable Disposition: PACU Plan for aftercare: Discharge to home
[2024-06-19] MEDS: OXYCODONE IR 5 MG TABLET PO (15:31)
[2024-06-19] MEDS: ONDANSETRON 4 MG/2 ML INJ IV (15:31)
[2024-06-19] MEDS: methocarbamoL 500 MG TABLET PO (15:36)
--- NOTE | 2024-06-19 15:37 | DI.RAD.S_ITS ---
PROCEDURE: XR LUMBAR SPINE 2-3V INDICATIONS: L5-S1 MICRODISCECTOMY TECHNIQUE: Fluoro spot films COMPARISON: None. FINDINGS: Low resolution intraoperative fluoroscopic spot films show tubular L5-S1 microdiskectomy in progress IMPRESSION: Fluoroscopic guidance Approved by: Gil Angeles M.D. on 06/20/2024 at 19:42
== END 2024-06-19 15:57 | disposition home or self-care (01) ==
PROVIDERS: PCP Family Medicine; Referring Provider Orthopaedic Surgery Orthopaedic Surgery of the Spine; Visit Provider Orthopaedic Surgery Orthopaedic Surgery of the Spine
PROC: (CPT 63030; principal; 2024-06-19 14:45)
DX: M51.26 Other intervertebral disc displacement, lumbar region (principal); M54.16 Radiculopathy, lumbar region
CPT/HCPCS: 63030; 72100; 76000; J0171; J0690; J1100; J2405; J2704; J2919; J3010

== ENCOUNTER 2025-03-23 14:24 | Emergency (ER) | payer MEDICARE, OTHER, SELFPAY ==
[2023-09-19 13:38] VITALS: BMI 29.5
[2025-03-23] VITALS (12 sets, daily range): BP systolic 120–172; BP diastolic 55–75; PULSE 77–94; RESP 12–23; TEMP 37.7–38.2; O2SAT 94–99; BMI 31.4
--- NOTE | 2025-03-23 14:35 | DI.RAD.S_ITS ---
PROCEDURE: XR CHEST 1V INDICATIONS: suspected sepsis TECHNIQUE: One view of the chest was acquired. COMPARISON: [facility], CR, XR CHEST 2V, 09/25/2023, 11:39. FINDINGS: Surgical changes and devices: None. Lungs and pleura: Left middle lung zone consolidation. Mediastinum: Mediastinal contours appear normal. Heart size is normal. Bones and chest wall: No suspicious bony lesions. Overlying soft tissues appear unremarkable. IMPRESSION: Left middle lung zone consolidation, concerning for bacterial pneumonia. Dictated by: aGldino Villasenor M.D. on 03/23/2025 at 15:02 Approved by: Galdino Villasenor M.D. on 03/23/2025 at 15:02
--- NOTE | 2025-03-23 14:35 | EKG_ITS ---
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
[2025-03-23] MEDS: SODIUM CHLORIDE 0.9% 1,000 ML 1000 ML IV (14:43)
[2025-03-23 14:46] LABS: Add Manual Diff / Slide Review NO; Basophils Absolute Auto 100 /uL (0-100); Basophils Percent Auto 0.5 % (0-2); Eosinophils Absolute Auto 0 /uL (0-450); Eosinophils Percent Auto 0.1 % (2-4); Hematocrit 39.8 % (36-46); Lymphocytes Absolute Auto 1500 /uL (1100-4500); Mean Corpuscular HGB Conc 35.1 % (30-36); Mean Corpuscular Hemoglobin 32.5 PG (26-34); Mean Corpuscular Volume 92.6 fL (80-100); Monocytes Absolute Auto 800 /uL (0-900); Monocytes Percent Auto 7.9 % (3-14); Neutrophils Absolute Auto 7600 /uL (1500-7000); Neutrophils Percent Auto 76.5 % (50-75); Platelet Count 159 X10^3/uL (150-400); Red Cell Distribution Width 13.9 % (11.6-14.8); White Blood Cell Count 9.9 X10^3/uL (4.5-11.0)
[2025-03-23 14:49] LABS: INR 1.2 (0.9-1.3); Prothrombin Time 13.6 SECONDS (9.4-12.5)
[2025-03-23 14:52] LABS: PTT Partial Thromboplastin Tim 38 SECONDS (25.1-36.5)
[2025-03-23 14:53] LABS: Lactate (Lactic Acid) 0.9 mmol/L (0.7-2.1)
[2025-03-23 14:54] LABS: Alanine Aminotransferase 26 IU/L (<35); Albumin 4.4 g/dL (3.5-5.0); Albumin Globulin Ratio 1.3 (1.0-2.8); Alkaline Phosphatase 96 U/L (38-126); Aspartate Aminotransferase 29 IU/L (14-36); BUN Creatinine Ratio 26.2 (6-22); Bilirubin Total 0.6 mg/dL (0.2-1.3); Blood Urea Nitrogen 17 mg/dL (7-17); Calcium 9.1 mg/dL (8.4-10.2); Carbon Dioxide 27 mmol/L (22-32); Chloride 96 mmol/L (98-107); Estimated Glomerular Filt Rate > 60 mL/min (>60); Globulin 3.3 g/dL (1.7-4.1); Glucose 124 mg/dL (70-99); HEMOLYSIS < 15 (0-50); Lipase 44 U/L (23-300); Potassium 3.9 mmol/L (3.4-5.1); Sodium 130 mmol/L (137-145); Total Protein 7.7 g/dL (6.3-8.2)
[2025-03-23 15:11] LABS: Procalcitonin 0.089 ng/mL (<0.5)
--- NOTE | 2025-03-23 15:48 | PC.NURSE ---
Urinary urgency; states she has had urinated on self. Pt reports no burning when peeing. Denies being around anyone sick. States fever at home today. States she has been sick at home for 3 days
[2025-03-23 15:58] LABS: Influenza A - CEPHEID Flu A NEGATIVE (NEGATIVE); Influenza B - CEPHEID Flu B NEGATIVE (NEGATIVE); Respiratory Syncytial Virus Negative (Negative)
[2025-03-23 16:02] LABS: COVID-19 CEPHEID 4-PLEX PCR Negative (Negative)
[2025-03-23] MEDS: AZITHROMYCIN 250 MG TABLET 500 MG PO (16:25)
[2025-03-23] MEDS: cefTRIAXone 1,000 MG in SODIUM CHLORIDE 0.9% 100 ML 200 MG IV (16:26)
--- NOTE | 2025-03-23 16:43 | ED_ITS ---
HPI - Fever General Chief Complaint: Upper Respiratory Symptoms Stated Complaint: 103 Fever, Vertigo, Cough Time Seen by Provider: 03/23/25 15:02 Source: patient, RN notes reviewed and old records reviewed Mode of arrival: Ambulatory Limitations: no limitations History of Present Illness HPI Narrative: 69-year-old female history of hypertension, dyslipidemia, hypothyroidism, left arm reflex sympathetic dystrophy, GERD on aspirin daily who presents with complaint of fevers, cough that has been nonproductive little bit of shortness of breath, no chest pain or pressure. Patient notes decreased appetite. She states she has felt a little bit off balance not really vertigo not spinning. She was had some headache when her cough occurs. She denies any nausea or vomiting. No issues with bowel movements. She knows little bit more sense of urinary urgency and frequency but no dysuria. Denies any swelling of extremities. No weakness numbness or difficulty with movement. Patient states home medications include amitriptyline, rosuvastatin, melatonin, carbamazepine for synthetic flex dystrophy, omeprazole, metoprolol, aspirin, lisinopril, hydrochlorothiazide, venlafaxine, levothyroxine, tramadol. Patient states she has not allergy to penicillin which has a rash she states she was had amoxicillin without issue in the past he was reports an allergy to sulfa. No tobacco, alcohol or recreational drugs. She states her primary care Dr. Novoa in [place]. Patient was accompanied by her . Related Data Home Medications Medication Instructions Recorded Confirmed amitriptyline 50 mg tablet 50 mg PO BEDTIME 09/11/23 06/19/24 aspirin 81 mg tablet,delayed 81 mg PO DAILY 09/11/23 06/19/24 release carbamazepine 100 mg 300 mg PO BID RSD 09/11/23 06/19/24 tablet,extended release,12 hr docusate sodium 100 mg capsule 100 mg PO DAILY 09/11/23 06/19/24 (Colace) ferrous sulfate 325 mg (65 mg 325 mg PO DAILY 09/11/23 06/19/24 iron) tablet hydrochlorothiazide 25 mg tablet 25 mg PO DAILY 09/11/23 06/19/24 levothyroxine 50 mcg tablet 50 mcg PO DAILY 09/11/23 06/19/24 lisinopril 5 mg tablet 5 mg PO DAILY 09/11/23 06/19/24 melatonin 3 mg tablet 3 mg PO BEDTIME 09/11/23 06/19/24 metoprolol succinate 50 mg 50 mg PO DAILY 09/11/23 06/19/24 tablet,extended release 24 hr omeprazole 20 mg capsule,delayed 20 mg PO DAILY 09/11/23 06/19/24 release rosuvastatin 10 mg tablet 10 mg PO DAILY 09/11/23 06/19/24 tramadol 50 mg tablet 50 mg PO QID Fibromyalgia 09/11/23 06/19/24 venlafaxine 75 mg tablet 75 mg PO TID Depression 09/11/23 06/19/24 Previous Rx's Medication Instructions Recorded amoxicillin 875 mg-potassium 1 tab PO BID #20 tabs 03/23/25 clavulanate 125 mg tablet azithromycin 250 mg tablet See Rx Instructions PO .COMPLEX #4 03/23/25 tabs Allergies Allergy/AdvReac Type Severity Reaction Status Date / Time Penicillins Allergy Mild Rash Verified 03/23/25 14:31 pregabalin [From Lyrica] AdvReac Severe Suicidal Verified 03/23/25 14:31 Ideation Sulfa (Sulfonamide AdvReac Intermediate Nausea Verified 03/23/25 14:31 Antibiotics) Review of Systems Review of Systems ROS Unobtainable: All systems reviewed & are unremarkable except as noted in HPI and below Patient History Medical History Lyme disease Depression Easy bruisability GERD (gastroesophageal reflux disease) Neuropathy RSD (reflex sympathetic dystrophy) Pre-diabetes Hypothyroidism Fibromyalgia Arthritis Anemia TIA (transient ischemic attack) (2019) RBBB (right bundle branch block) Mixed hyperlipidemia HTN (hypertension) Surgical History 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 HEENT: Atraumatic, pupils are equal round reactive to light, extraocular movements are intact, nares are clear, there is no conjunctival pallor. No facial droop. HEART: Regular rate and rhythm without murmur, clicks, rubs. Pulses are equal in upper and lower extremities LUNGS:Lungs clear to auscultation, no wheezes, rales, crackles, chest moves symmetrically, no tachypnea or accessory muscle use, patient has mild cough. ABD:bowel sounds normal, soft, non-tender, no guarding, rebound, rigidity, no masses noted, no hepatosplenomegaly :No CVA tenderness MSCL: Non-tender, no muscle atrophy, muscles strength 5/5 upper and lower extremities, full range of motion. NEURO:CN 2-12 intact, sensation normal. Initial Vital Signs Initial Vital Signs: Vital Signs Temperature 100.7 F H 03/23/25 14: Pulse Rate 94 H 03/23/25 14:25 Respiratory Rate 14 03/23/25 14: Blood Pressure 172/75 H 03/23/25 14:25 Pulse Oximetry 94 03/23/25 14:25 Oxygen Delivery Method Room Air 03/23/25 14:25 Course Orders Ordered: ED Orders 03/23/25 14:35 XR chest 1V Stat Complete Blood Count AUTO DIFF Stat Comprehensive Metabolic Panel Stat Lactate (Lactic Acid) Stat Lipase Stat PTT Partial Thromboplastin Jeremy Stat Procalcitonin Stat Prothrombin Time INR Stat EKG-12 Lead Stat RT Consult Eval and Treat NOW 03/23/25 14:45 Blood Culture Stat 03/23/25 15:17 Covid-19 + FLU A/B + RSV - PCR Stat Discontinued Medications Azithromycin (Azithromycin 250 Mg Tablet) 500 mg PO NOW ONE Stop: 03/23/25 16:10 Last Admin: 03/23/25 16:25 Dose: 500 mg Documented By: PAUL Sodium Chloride (Normal Saline 0.9%) 1,000 mls @ 1,000 mls/hr IV BOLUS ONE Stop: 03/23/25 15:34 Last Infusion: 03/23/25 16:23 Dose: Infused Documented By: Admin: 03/23/25 14:43 Dose: 1,000 mls/hr Documented By: HERNANDEZ Ceftriaxone Sodium 1,000 mg/ (Sodium Chloride) 100 mls @ 200 mls/hr IV NOW ONE Stop: 03/23/25 16:09 Last Infusion: 03/23/25 17:15 Dose: Infused Documented By: Admin: 03/23/25 16:26 Dose: 200 mls/hr Documented By: PAUL Ondansetron HCl (Ondansetron 4 Mg/2 Ml Inj) 4 mg IV NOW PRN PRN Reason: Nausea And Vomiting Ondansetron HCl (Ondansetron 4 Mg Odt) 4 mg PO NOW PRN PRN Reason: Nausea And Vomiting Vital Signs Vital signs: Vital Signs - 8 hr 03/23/25 14:25 03/23/25 14:29 03/23/25 14:29 Temperature 100.7 F H Pulse Rate 94 H 93 H Respiratory Rate 14 Blood Pressure 172/75 H 172/75 H Pulse Oximetry 94 95 Oxygen Delivery Method Room Air 03/23/25 14:30 03/23/25 14:30 03/23/25 14:48 Temperature Pulse Rate 91 H Respiratory Rate Blood Pressure 156/55 H 132/63 Pulse Oximetry 96 Oxygen Delivery Method 03/23/25 14:48 03/23/25 15:00 03/23/25 15:00 Temperature Pulse Rate 86 80 Respiratory Rate 17 Blood Pressure 130/61 Pulse Oximetry 96 96 Oxygen Delivery Method 03/23/25 15:30 03/23/25 15:30 03/23/25 16:00 Temperature Pulse Rate 77 79 Respiratory Rate 18 20 Blood Pressure 120/58 L Pulse Oximetry 97 96 Oxygen Delivery Method 03/23/25 16:00 03/23/25 16:30 03/23/25 16:31 Temperature Pulse Rate 82 81 Respiratory Rate 12 12 Blood Pressure 125/59 L Pulse Oximetry 99 99 Oxygen Delivery Method 03/23/25 16:31 03/23/25 17:00 03/23/25 17:00 Temperature Pulse Rate 89 Respiratory Rate 23 Blood Pressure 160/67 H 158/67 H Pulse Oximetry 99 Oxygen Delivery Method 03/23/25 17:14 03/23/25 17:21 Temperature 100 F H Pulse Rate Respiratory Rate 18 Blood Pressure Pulse Oximetry Oxygen Delivery Method MDM - Fever Lab Data 03/23/25 14:35 03/23/25 14:35 Labs: Lab Results 03/23/25 03/23/25 Range/Units 14:35 15:17 WBC 9.9 (4.5-11.0) X10^3/uL RBC 4.30 (4.0-5.2) X10^6/uL Hgb 14.0 (12.0-16.0) g/dL Hct 39.8 (36-46) % MCV 92.6 (80-100) fL MCH 32.5 (26-34) PG MCHC 35.1 (30-36) % RDW 13.9 (11.6-14.8) % Plt Count 159 (150-400) X10^3/uL Neut % (Auto) 76.5 H (50-75) % Lymph % (Auto) 15.0 L (25-40) % [place] % (Auto) 7.9 (3-14) % Eos % (Auto) 0.1 L (2-4) % Baso % (Auto) 0.5 (0-2) % Neut # (Auto) 7600 H (9044-3988) /uL Lymph # (Auto) 1500 (7879-6376) /uL [place] # (Auto) 800 (0-900) /uL Eos # (Auto) 0 (0-450) /uL Baso # (Auto) 100 (0-100) /uL PT 13.6 H (9.4-12.5) SECONDS INR 1.2 (0.9-1.3) APTT 38 H (25.1-36.5) SECONDS Sodium 130 L (137-145) mmol/L Potassium 3.9 (3.4-5.1) mmol/L Chloride 96 L (98-107) mmol/L Carbon Dioxide 27 (22-32) mmol/L BUN 17 (7-17) mg/dL Creatinine 0.65 (0.52-1.04) mg/dL Estimated GFR > 60 (>60) mL/min BUN/Creatinine Ratio 26.2 H (6-22) Glucose 124 H (70-99) mg/dL Lactate 0.9 (0.7-2.1) mmol/L Calcium 9.1 (8.4-10.2) mg/dL Total Bilirubin 0.6 (0.2-1.3) mg/dL AST 29 (14-36) IU/L ALT 26 (<35) IU/L Alkaline Phosphatase 96 (38-126) U/L Total Protein 7.7 (6.3-8.2) g/dL Albumin 4.4 (3.5-5.0) g/dL Globulin 3.3 (1.7-4.1) g/dL Albumin/Globulin Ratio 1.3 (1.0-2.8) Lipase 44 (23-300) U/L Procalcitonin 0.089 (<0.5) ng/mL SARS-CoV-2 (PCR) Negative (Negative) Influenza A (RT-PCR) Flu a negative (NEGATIVE) Influenza B (RT-PCR) Flu b negative (NEGATIVE) RSV (PCR) Negative (Negative) Urine Dip Bedside Urine Glucose Negative Bedside Urine Bilirubin - Negative Bedside Urine Ketone - Negative Urine Specific [place] 1.010 Bedside Urine Occult Blood - Negative Bedside Urine pH 6.0 Bedside Urine Protein - Negative Bedside Urine Urobilinogen - Negative Bedside Urine Nitrite - Negative Bedside Urine Leukocytes - Negative Esterase ECG Data Attestation: I personally reviewed and interpreted this ECG as follows: Prior ECG tracings: available for review Interpretation: Sinus rhythm, left axis deviation, right bundle-branch block, rate 82 [place] 160 QRS of 154 QTC of 486, no acute ST elevation depression. Patient has prior from 06/04/2024, appears similar to today's. [facility] Narrative Medical decision making narrative: EKG shows sinus rhythm, left axis deviation right bundle-branch block Labs show normal CBC, INR is appropriate, sodium is 130 patient has been slowly trending down over the past 2 years. Chloride 96 potassium 3.9 BUN creatinine are appropriate glucose is 124 lactate 0.9 with a negative LFTs procalcitonin 0.089. Point of care urine is negative. COVID/influenza/RSV is negative Chest x-ray shows left mid lung zone consolidation concerning for bacterial pneumonia. Patient received Rocephin and azithromycin. Patient did meet septic criteria was febrile at 100.7 F had heart rate in the 90s, patient was not hypotensive, has a white count of 11. Patient had antipyretic prior to arrival. Patient received a L bolus did not receive 30 cc/kilos bolus did receive Rocephin azithromycin. Patient is nontoxic well-appearing felt appropriate for discharge does have blood cultures pending. We will start on oral antibiotics. Patient states she was feeling well feels comfortable with discharge home we will discharge on Augmentin azithromycin with return precautions. Discharge Plan Departure Patient Disposition: Home Clinical Impression: Pneumonia Instructions: DI for Pneumonia -- Adult Activity Restrictions/Additional Instructions: Follow up for recheck, today your chest x-ray shows changes consistent with pneumonia in the left side. You do have blood cultures pending these take several days to result if positive you would be contacted. Your workup shows your sodium slightly low. Please let the scheduling team know that you are being treated for pneumonia they may wish to adjust your upcoming lung biopsy appointment for the spot on your right lung. Take oral antibiotics until completed. You received a dose of IV antibiotics that is good for about 24 hours as well as a dose of oral antibiotic here in the department. Take your next dose is tomorrow. Take the Augmentin 1 tablet twice daily for 10 days, azithromycin we will be 1 tablet daily for 4 more days. Prescription sent to [facility] in [place]. Please return if you are having persistent fevers, new chest pain, new shortness of breath, lightheadedness or passing out, coughing up blood, new swelling of your extremities or other new or concerning changes. Prescriptions: New amoxicillin-pot clavulanate 875-125 mg tablet 1 tab PO BID Qty: 20 0RF azithromycin 250 mg tablet See Rx Instructions .ROUTE .COMPLEX Qty: 4 0RF Rx Instructions: For 250 mg dose pack: take 500 mg today (day 1), then 250 mg for 4 days (days 2-5) No Action venlafaxine 75 mg Tablet 75 mg PO TID metoprolol succinate 50 mg Tablet Extended Release 24 Hr 50 mg PO DAILY carbamazepine 100 mg Tablet Extended Release 12 Hr 300 mg PO BID melatonin 3 mg Tablet 3 mg PO BEDTIME aspirin 81 mg Tablet,Delayed Release (Dr/Ec) 81 mg PO DAILY tramadol 50 mg Tablet 50 mg PO QID amitriptyline 50 mg Tablet 50 mg PO BEDTIME levothyroxine 50 mcg Tablet 50 mcg PO DAILY ferrous sulfate 325 mg (65 mg iron) Tablet 325 mg PO DAILY docusate sodium [Colace] 100 mg Capsule 100 mg PO DAILY omeprazole 20 mg Capsule,Delayed Release(Dr/Ec) 20 mg PO DAILY lisinopril 5 mg Tablet 5 mg PO DAILY hydrochlorothiazide 25 mg Tablet 25 mg PO DAILY rosuvastatin 10 mg Tablet 10 mg PO DAILY Referrals: Silvia Novoa DO [Primary Care Provider] - Stand Alone Forms: Patient Portal/API/Survey
== END 2025-03-23 17:23 | disposition home or self-care (01) ==
PROVIDERS: Emergency Provider Emergency Medicine; PCP Family Medicine
DX: J18.9 Pneumonia, unspecified organism (principal); R06.02 Shortness of breath
CPT/HCPCS: 0241U; 36415; 71045; 80053; 81003; 83605; 83690; 84145; 85025; 85610; 85730; 87040; 93005; 96361; 96365; 99284; J0696